=== PATIENT | female | born 1970 | race Caucasian/White ===

== ENCOUNTER 2018-12-02 15:07 | Inpatient (IN) ==
--- NOTE | 2018-12-02 15:45 | Emergency Department Note ---
Disposition Clinical Impression: Hypokalemia, Jaundice Disposition: Admitted As Inpatient Referrals: Lona Pandya CNP [Primary Care Provider] - Time of Disposition: 16:44 General Adult HPI - General Chief complaint: ED Recheck/Abnormal Lab/Rx Stated complaint: K+ low Time Seen by Provider: 12/02/18 15:19 Source: patient Mode of arrival: ambulatory Limitations: no limitations Nursing Notes Reviewed: Yes Vital Signs Reviewed: Yes - History of Present Illness HPI Narrative: 48F with PMHx of HTN presents to emergency department after having an abnormal lab drawn by her primary care physician. Patient states that she had labs drawn today as she has been trying to find out the cause of her jaundice which appeared in April. Her potassium was found to be low at 2.6 today. Patient states she has had low magnesium and low potassium in the past but never a potassium as low as this. She is not on any diuretic medications for her hypertension. She denies vomiting and diarrhea. She has not had any heart palpitations or felt short of breath. She does have some right-sided abdominal pain which she states she has had since April. Pain Scale: 6 - Related Data Home Medications Medication Instructions Recorded Confirmed Lactulose 20 gm PO BID PRN 04/21/18 12/02/18 Metoprolol Succinate [Toprol Xl] 25 mg PO DAILY 04/21/18 12/02/18 Ondansetron HCl [Zofran] 4 mg PO Q6H PRN 04/21/18 12/02/18 Pantoprazole Sodium [Protonix] 40 mg PO DAILY 04/21/18 12/02/18 Allergies Allergy/AdvReac Type Severity Reaction Status Date / Time Penicillins AdvReac Hives Verified 04/20/18 17:52 All systems ED: reviewed and negative except as stated. Review of Systems: As Per HPI Constitutional: Denies: fever, chills, weakness Cardiovascular: Denies: chest pain, palpitations, dyspnea on exertion Respiratory: Denies: cough, dyspnea, wheezes Gastrointestinal: Reports: abdominal pain, nausea. Denies: vomiting, diarrhea Genitourinary: Denies: dysuria, hematuria Musculoskeletal: Denies: back pain, neck pain Neurological: Denies: headache Endocrine: Reports: fatigue Past Medical History - Past Medical History Attestation: Yes The following information was validated with the patient. Source: patient Medical history: Reports: GERD, hypertension Psychiatric history: Reports: no psych history - Social History Smoking Status: Current every day smoker Alcohol use: Reports: occasionally Drug use: Reports: none Physical Exam - General Limitations: no limitations General appearance: alert, in no apparent distress - Head Head exam: atraumatic, normocephalic - Eye Eye exam: Present: PERRL, EOMI, scleral icterus - Chest Chest inspection: Present: normal inspection. Absent: tenderness, rash - Respiratory Respiratory exam: Present: normal lung sounds bilaterally. Absent: wheezes - Cardiovascular Cardiovascular exam: Present: regular rate, normal rhythm - Abdominal Exam Abdominal exam: Present: soft, Non-Tender. Absent: distention, guarding, rebound, rigidity, Solitario's sign, tenderness at McBurney's Point - Extremities Exam Extremities exam: Present: normal inspection. Absent: tenderness, pedal edema - Neurological Exam Neurological exam: Present: alert, oriented X3, CN II-XII intact - Psychiatric Psychiatric exam: Present: normal affect, normal mood - Skin Skin exam: Present: warm, dry, intact Course Vital Signs Temperature 99.8 F H 12/02/18 15:18 Pulse Rate 97 12/02/18 15:18 Respiratory Rate 18 12/02/18 15:18 Blood Pressure 119/76 12/02/18 15:18 O2 Sat by Pulse Oximetry 99 12/02/18 15:18 Temperature 99.8 F H 12/02/18 15:18 Pulse Rate 97 12/02/18 15:18 Respiratory Rate 18 12/02/18 15:18 Blood Pressure 119/76 12/02/18 15:18 O2 Sat by Pulse Oximetry 99 12/02/18 15:18 Oxygen Delivery Oxygen Delivery Room Air Medical Decision Making - [facility] Narrative Medical decision making narrative: Patient presents from outpatient physician's office with low potassium at 2.6. Other labs show an elevated bilirubin of 21. WE will obtain an EKG and start replacing potassium via IV. 1630 - The patient had reportedly been told to stop drinking and adopt healthier eating habits and she states she had tried to improve which caused the jaundice to initially improve, but it has come back over the past few weeks. She also admits to some intermittent melanotic stools her last of which were 2 days ago. The patient will be admitted for further GI workup and see Dr. Dinh in consultation while having her potassium replenished. We spoke with Dr. Dinh and he is requesting some labs including a drug screen, repeat LFTs, a hepatitis panel and states the patient needs an MRCP. Hospitalist has been paged for admission. 1643 - pt has been accepted to the hospital by Dr. Chacon - Medical Records Medical records reviewed: Yes I reviewed the patient's medical records. - Lab Data Lab results reviewed: Yes I reviewed the patient's lab results. Result diagrams: 12/02/18 22:06 Attestation Statement - Attestation Attestation: I, Cyrus Rose, examined this patient and my medical decision-making was reviewed with the QA INTERN/PA/Advanced Practice Nurse/Resident Physician. I agree with the documented findings, disposition and treatment plan as described except to the extent set forth below. I reviewed the EKG with the resident and agree with the interpretation. 48-year-old female presents emergency Department with concerns of hypokalemia. Patient states she was seen by her primary care provider for reevaluation of jaundice. The primary care provider or laboratory testing which returned as hypokalemia. The patient has a history of alcoholic hepatitis and is following with Dr. Dinh. She does report that she has continued to drink alcohol and has not stopped. Patient is jaundiced on exam. She does not have significant pain to the right upper quadrant. Patient's direct bili was significantly elevated. She is anemic more than her previous labs however this could be secondary to either prolonged menstrual period over the past month and a half or a GI bleed. Patient does state that she has had occasional episodes of melena over the past 3 weeks with the last one being 2 days ago. I spoke with the GI physician who is comfortable keeping the patient at [facility]. Patient will be admitted to the hospitalist for further care and evaluation.
[2018-12-02] MEDS ORDERED: Potassium Chloride 40 MEQ, Lidocaine 1% 2 ML in 0.9 % Sodium Chloride 500 ML IVPB ONE (15:56)
[2018-12-02] MEDS ORDERED: diazePAM 10 MG/2 ML SYRINGE IVP PRN (16:54)
[2018-12-02 17:10] LABS: Acetaminophen < 10 mcg/mL (10-20); Ethanol < 10 mg/dL (Less than 10); Salicylate < 2.5 mg/dL (15.0-30.0)
[2018-12-02 17:26] LABS: Albumin 2.9 g/dL (3.5-5.7); Albumin/Globulin Ratio 0.9 (1.1-2.2); Bilirubin,Direct 11.6 mg/dL (0.0-0.2); Bilirubin,Indirect 8.4 mg/dL (0.0-1.2); Globulin 3.2 g/dL (2.4-3.5); Total Protein 6.1 g/dL (6.4-8.9)
[2018-12-02 17:50] LABS: Hepatitis B Surface Antigen Nonreactive (Nonreactive)
[2018-12-02] MEDS ORDERED: Naloxone 0.4 MG/ML INJ IVP PRN (17:59)
[2018-12-02] MEDS ORDERED: Isovue-370 500 ML BOTTLE IVP ONE (18:06)
[2018-12-02 18:18] LABS: Hepatitis B Core IgM Nonreactive (Nonreactive); Hepatitis C Virus Antibody Nonreactive (Nonreactive)
[2018-12-02 18:20] LABS: Hepatitis A Antibody IgM Nonreactive (Nonreactive)
--- NOTE | 2018-12-02 18:41 | Internal Med History&Physical ---
Date of Encounter: 12/02/18 Time of Encounter: 18:28 Internal Medicine - H&P: HPI Chief complaint: abnormal labs Admitted From: Emergency Dept Plans for Post Hospital Care: Home History of present illness: Ms. Kirkpatrick is a 48 year old female with past medical history of hypertension, anxiety, GERD, and alcoholic hepatitis. Surgical history significant for tubal ligation and likely endometrial ablation. Prior to March the patient had very little past medical history. She presented to this hospital earlier this year for painless jaundice. Workup at that time consisted of labs and imaging significant for elevated liver and cholestasis enzymes. Hepatitis screening and imaging at that time was negative for acute abnormality. She was diagnosed with alcoholic hepatitis and discharged in stable condition with a plan for alcohol cessation and nutritional supplementation. She did have resolution of her symptoms including resolution of jaundice and scleral icterus. At discharge she apparently was not prescribed vitamin supplementation as recommended by GI. She also did not comply with alcohol cessation, but did decrease her drinking from approximately 6 drinks per day to 3 drinks per day. Approximately one month ago she began having symptoms of fatigue and malaise. Approximately one month ago she also had the onset of vaginal bleeding whereas she had not bled for 11 months prior, and thought she had reached menopause. It is unclear if the fatigue and malaise are related to vaginal bleeding. Then 2 weeks ago she had resumption of jaundice and scleral icterus. This morning she presented to her primary care physician who ordered general screening labs, and upon results of those labs she was told to present to the emergency department for evaluation. Labs on admission significant for leukocytosis of 15.3, macrocytic anemia with hemoglobin of 10.0, hypokalemia with potassium of 2.6, hyperbilirubinemia, elevated GGT, transaminitis and elevated alkaline phosphatase, and hyperammonemia. Gastroenterology consultation was requested who recommended hepatitis panel and MRCP and they will evaluate the patient in the morning. Patient was transferred to hospitalist service for admission. On my evaluation the patient related and confirmed the above history. She also admits to pack per day smoking history over her lifetime. She relates a family history of her mother having some sort of hepatobiliary cancer, and her daughter having obstetrical/gynecological problems. She reports a personal history of a tubal ligation and a diagnosis after her most recent childbirth in 1990 that required a procedure that sounds like it may have been an endometrial ablation. She states she has not had a gynecological examination or evaluation since 1999. She also reports multiple colonoscopies with polyp removals, up to 14 polyps removed at one point, but that she is up-to-date with colonoscopies. She does also mention melena. She reports being up-to-date with all childhood and adult vaccinations. She denies any illicit drug use. She states that other than fatigue and malaise and mild right upper quadrant pain she denies any acute complaints at this time. During the exam I asked the patient if the rash I noticed was present this morning, and she stated it was not. Past Med Surg Social Fam HX - Past Medical History Medical history: GERD, hypertension Psychiatric history: no psych history - Past Surgical History Additional surgical history: tubal ligation - Social History Smoking Status: Current every day smoker Alcohol use: occasionally Drug use: none - Family History Mother Adopted: No Twin of Family Member: Yes, Fraternal Living Status: Hx Family Cardiac Disorders: Yes (dad, brother aortic valve replacement.) Hx Family Respiratory Disorders: Yes (brother COPD) Hx Family Cancer: Yes (mother gall bladder tumor) Hx Family GI Disorders: No Hx Family Endocrine Disorder: Yes (dad DM) Hx Family Neuromuscular Disorders: No Hx Family Neurologic Disorders: No Hx Family HEENT Disorders: No Hx Family Autoimmune Disorders: No Internal Medicine - H&P: Meds Lactulose 20 gm PO BID PRN 04/21/18 [History] Metoprolol Succinate [Toprol Xl] 25 mg PO DAILY 04/21/18 [History] Ondansetron HCl [Zofran] 4 mg PO Q6H PRN 04/21/18 [History] Pantoprazole Sodium [Protonix] 40 mg PO DAILY 04/21/18 [History] Allergy/AdvReac Type Severity Reaction Status Date / Time Penicillins AdvReac Hives Verified 04/20/18 17:52 All Systems PM: A 10-system review of systems was performed and is negative for pertinent findings except as documented above in the HPI. Review of systems: 10 point review of systems negative except as otherwise mentioned in history of present illness. - Constitutional Vitals: Temp Pulse Resp BP Pulse Ox 98.7 F 101 18 129/78 97 12/02/18 17:36 12/02/18 17:36 12/02/18 17:36 12/02/18 17:36 12/02/18 17:36 Exam: 48-year-old white female appearing stated age resting comfortably in bed Alert and oriented 3, in no acute distress Significant scleral icterus present, pupils equal and reactive to light and extraocular movements intact Heart in regular rate and rhythm without murmur or gallop auscultated Lungs clear auscultation bilaterally without adventitial lung sounds noted Abdomen obese and soft and nontender without distention, normal bowel sounds noted, no peritoneal signs, mild right upper quadrant tenderness, no hepatomegaly noted, no fluid wave or ascites present, no angiectasia noted, 2 small surgical scars present from apparent remote laparoscopic surgery Patient moves all extremities spontaneously, no focal deficits noted Skin warm and dry, no jaundice noted however would be difficult to tell with patient skin tone. No angiectasia, bleeding or bruising noted. There is livedo reticularis present bilaterally across the lumbar region. Internal Med - H&P Results - Labs Labs: Liver Function 12/02/18 Range/Units 16:39 Total Bilirubin 20.0 H (0.3-1.0) mg/dL Direct Bilirubin 11.6 H (0.0-0.2) mg/dL AST 121 H (13-39) Units/L ALT 33 (7-52) Units/L Alkaline Phosphatase 546 H (34-104) Units/L Albumin 2.9 L (3.5-5.7) g/dL - Assessment and Plan (1) Elevated LFTs Current Visit: Yes Status: Acute Assessment and plan: Patient was told to present to emergency department by her PCP due to abnormal labs Significant abnormalities include leukocytosis, microcytic anemia, transaminitis, hyperbilirubinemia, hypokalemia These are the labs that were similarly elevated during her last admission where she was diagnosed with alcoholic hepatitis She did not stop drinking after the previous admission and has had repeated elevations of her labs and painless jaundice However considering the broad-spectrum of lab abnormalities there is a very concerning and broad differential Differential includes alcoholic hepatitis, autoimmune hepatitis, hepatobiliary malignancy, other primary malignancy Gastroenterology is consulted, and has requested hepatitis panel and MRCP, and will evaluate the patient in the morning In anticipation we have ordered SHARA GEORGE, AFP, mitochondrial antibody, smooth muscle antibody, PT/INR At this point the patient is only experiencing mild right upper quadrant pain and malaise, and is hemodynamically stable She will continue to receive supportive care, labs are pending, and gastroenterology will evaluate in the morning (2) Vaginal bleeding Current Visit: Yes Status: Acute Assessment and plan: Patient reports remote history of what sounds like possible endometrial ablation She has not received a gynecological evaluation since 2000 She has been bleeding vaginally for approximately one month, and had not bled for approximately 11 months prior This history is very concerning for gynecological malignancy CT of the abdomen and pelvis with IV contrast is ordered and pending to evaluate (3) Anemia Current Visit: Yes Status: Chronic Assessment and plan: Patient was noted to have mild microcytic anemia, hemoglobin 10.0 on presentation On review of records this is not far from her apparent baseline of 11 This could be secondary to her vaginal bleeding, we will continue to monitor Qualifiers: Anemia type: unspecified type Qualified Code(s): D64.9 - Anemia, unspecified (4) Jaundice Current Visit: Yes Status: Acute (5) Hyperbilirubinemia Current Visit: Yes Status: Acute (6) Alcohol abuse Current Visit: Yes Status: Chronic Assessment and plan: History of chronic alcohol use, CIWA protocol in place (7) Hypokalemia Current Visit: Yes Status: Acute Assessment and plan: Potassium of 2.6 noted on admission, supplementation initiated in the emergency department Repeat potassium check ordered and timed for 8PM, supplementation as necessary (8) Livedo reticularis Current Visit: Yes Status: Acute Assessment and plan: Livedo reticularis noted on the lumbar back on presentation, this appears to be acute Etiology unclear although it can be related to hepatitis We will continue to monitor - Time Spent With Patient Total time spent is greater than 50% in coordination of care (as documented) at patient's floor/unit and/or counseling patient:
--- NOTE | 2018-12-02 18:43 | Event Note ---
Date of Encounter: 12/02/18 Time of Encounter: 18:30 I examined this patient and my medical decision-making was reviewed with the Resident Physician on 12/02/18. I agree with the documented findings, disposition and treatment plan as described except to the extent set forth below. Please see H&P of this date. Ms Kirkpatrick is 48 y/o female with hx of ETOH use presented to ED due to abnormal labs. Ms Kirkpatrick presented with jaundice, icterus and abnormal labs. Denies specific symptoms. Exam Alert. Comfortable Scleral icterus. Not tachycardic No wheeze I/P 1. Probable alcholic hepatitis - INR pending. May need iV steroids. Check liver labs MRCP today CT abd and pelvis due to vaginal bleeding. Further diagnoses and plan as per H&P
[2018-12-02] MEDS ORDERED: *HR* LORazepam 2 MG/ML VIAL IVP PRN (19:13)
[2018-12-02 20:24] LABS: INR 1.3; Prothrombin Time 14.7 Seconds (9.4-12.1)
[2018-12-02 20:27] LABS: Activated Partial Thrombo Time 35.6 Seconds (26.0-36.0)
[2018-12-02] MEDS: Ondansetron ODT 4 MG TAB.RAPDIS SL PRN (21:42)
[2018-12-02] MEDS: MethylPREDNISolone 40 MG/ML VIAL IVP SCH (22:40)
[2018-12-02] MEDS: Melatonin 3 MG TABLET PO PRN (22:41)
[2018-12-03] MEDS ORDERED: traMADol 50 MG TABLET PO ONE ×2 (00:10→20:35)
[2018-12-03 02:39] LABS: Amphetamine Screen,Urine Negative ng/mL (Cutoff=1000); Barbiturate Screen,Urine Negative ng/mL (Cutoff=200); Benzodiazepines Screen,Urine Negative ng/mL (Cutoff=200); Cannabinoid Screen,Urine Negative ng/mL (Cutoff = 50); Cocaine Screen,Urine Negative ng/mL (Cutoff= 300); Opiate Screen,Urine Negative ng/mL (Cutoff=300); Phencyclidine Screen,Urine Negative ng/mL (Cutoff=25)
[2018-12-03 06:30] LABS: Hematocrit 27.2 % (35.3-44.9); Hemoglobin 9.2 g/dL (11.5-15.4); Mean Corpuscular HGB Conc 33.8 g/dL (31.6-35.5); Mean Corpuscular Hemoglobin 36.1 pg (28.0-33.3); Mean Corpuscular Volume 106.7 fL (83.0-100.0); Mean Platelet Volume 10.2 fL (9.4-12.4); Platelet Count 222 K/mcL (140-400); Red Blood Count 2.55 M/mcL (3.82-4.97); White Blood Count 11.8 K/mcL (4.3-11.1)
[2018-12-03 06:48] LABS: BUN/Creatinine Ratio 6 (6-26); Blood Urea Nitrogen 4 mg/dL (6-20); Calcium 8.1 mg/dL (8.6-10.3); Carbon Dioxide 23 mEq/L (23-29); Chloride 102 mEq/L (98-107); Glucose 142 mg/dL (70-105); Osmolality,Calculated 277 (280-300); Sodium 134 mEq/L (136-145); eGFR For African Americans > 60 (> 60); eGFR For Non-African Americans > 60 (> 60)
--- NOTE | 2018-12-03 07:49 | Internal Med Progress Note ---
<MaiaDeonKenton M - Last Filed: 12/03/18 12:12> Hospitalist Progress Note - Encounter Date of Encounter: 12/03/18 Time of Encounter: 07:49 - Subjective Interval History: 48 y/o F with alcoholic hepatitis. Patient is awake, alert, in bed and comfortable. No acute events overnight. Patient endorses some moderate right sided abdominal pain that is unchanged. She reports some mild dysphagia, chills, and sob that began last night. Denies cp, nausea, vomiting. Scleral icterus and jaundice present. - Exam Vitals: Temp Pulse Resp BP Pulse Ox 98.1 F 81 16 100/54 95 12/03/18 03:34 12/03/18 03:34 12/03/18 03:34 12/03/18 03:34 12/03/18 03:34 Exam: GA: Alert and oriented 3, in no acute distress Eyes: scleral icterus present, pupils equal and reactive to light and extraocular movements intact CV: RRR, S1/S2 WNL, no murmurs, rubs, gallops. Lungs: CTAB, no wheezes, rales, rhonchi. GI: Abdomen obese, soft with mild RUQ tenderness to palpation. BS are normoactive. Rashmi fluid wave or ascites present. Ext: No clubing, cyanosis, edema. Skin: warm and dry, mild jaundice. Signficant livedo reticularis present bilaterally across the lumbar region. Neuro: CN grossly intact, no focal deficits. - Assessment and Plan (1) Alcoholic hepatitis Current Visit: Yes Status: Acute Assessment and Plan: Pt previously admitted for alcoholic hepatitis. She did not cessate from alcohol and had repeat elevations of liver enzymes w/painless jaundice. PT 14.7 w/INR of 1.3. AST down from 121 to 100 today. Total bilirubin 19.3. Calcium of 8.1 today, calcium correction for hypoalbunemia is 9.1, no need for supp. Hemodynamically stable. MRCP showed nonspecific periportal edema can be seen with hepatitis, trace ascites right upper quadrant is likely reactive, contracted mildly thick walled gallbladder with pericholecystic fluid is nonspecific, unremarkable appearance of the common bile duct and pancreatic duct, hepatic steatosis and hepatomegaly. GAH 6, MELD-Na 24, DF 32. - Continue Solu-Medrol 32 mg Daily. - Continue to monitor hepatic panel daily per GI. - NPO, plan for EGD today per GI. - Awaiting SHARA GEORGE, AFP, mitochondrial antibody, smooth muscle antibody. - New onset livedo reticularis present on back, will continue to monitor. (2) Hyperammonemia Current Visit: Yes Status: Acute Assessment and Plan: Pt with elevated ammonia level on admission. Pt takes lactulose 20g BID at home. - Start 20 g lactulose daily. - Titrate to 2-4 stools per day. - Repeat ammonia. (3) Hypokalemia Current Visit: Yes Status: Acute Assessment and Plan: Potassium of 2.6 noted on admission. Patient was given 40 meq IV KCl. Repeat potassium now at 3. Patient currently NPO awaiting EGD. - Additional 40 meq IV given prior to endoscopy. - Repeat potassium. Supp as necessary. (4) Vaginal bleeding Current Visit: Yes Status: Acute Assessment and Plan: Patient with new-onset vaginal bleeding x 1 month. Not bled for 11 months prior. Concern for gynecological malignancy. - Abd/pelvis CT revealed expanded endometrial canal with likely blood products. Normal endometrial thickness. Left pelvic 2.2cm cystic structure. No need for ovarian cyst f/u. - It is unlikely malignancy at this point. Will plan for outpatient follow-up with [facility] [employer] SUPER[facility]OR at discharge. - Monitor Hbg, transfuse if necessary. (5) Anemia Current Visit: Yes Status: Chronic Assessment and Plan: Patient was noted to have mild microcytic anemia, hemoglobin 10.0 on presentation. Apparent baseline of 11. Repeat Hbg of 9.2, likely secondary to vaginal bleeding or liver dysfunction. - Continue to monitor. - Monitor CBC, transfuse PRBC as needed per GI. - EGD today. (6) Livedo reticularis Current Visit: Yes Status: Acute Assessment and Plan: Livedo reticularis noted on the lumbar back on presentation, this appears to be acute Etiology unclear although it can be related to hepatitis We will continue to monitor (7) Alcohol abuse Current Visit: Yes Status: Chronic Assessment and Plan: History of chronic alcohol use, [facility] protocol in place. - Abstain from alcohol. - Continue multivitamins. - Time Spent with Patient Total time spent is greater than 50% in coordination of care (as documented) at patient's floor/unit and/or counseling patient: Plan of Care Discussed with: patient Internal Medicine: Result - Labs CBC & Chem 7: 12/03/18 06:01 12/03/18 06:01 Labs: Short CBC 12/03/18 Range/Units 06:01 WBC 11.8 H (4.3-11.1) K/mcL Hgb 9.2 L (11.5-15.4) g/dL Hct 27.2 L (35.3-44.9) % Plt Count 222 (140-400) K/mcL BMP 12/02/18 12/03/18 22:06 06:01 Sodium 134 L Potassium 2.6 L 3.0 L Chloride 102 Carbon Dioxide 23 BUN 4 L Creatinine 0.66 Glucose 142 H Calcium 8.1 L Liver Function 12/02/18 Range/Units 16:39 Total Bilirubin 20.0 H (0.3-1.0) mg/dL Direct Bilirubin 11.6 H (0.0-0.2) mg/dL AST 121 H (13-39) Units/L ALT 33 (7-52) Units/L Alkaline Phosphatase 546 H (34-104) Units/L Albumin 2.9 L (3.5-5.7) g/dL - ABG Interpretation ABG results: PT/INR, D-dimer PT 14.7 Seconds (9.4-12.1) H 12/02/18 19:55 - Impressions Impressions Abdomen MRI 12/02/18 16:27 IMPRESSION: 1. Nonspecific periportal edema can be seen with hepatitis. 2. Trace ascites right upper quadrant is likely reactive. 3. Contracted mildly thick walled gallbladder with pericholecystic fluid is nonspecific. Acalculous cholecystitis is a consideration. Correlate with HIDA scan. 4. Unremarkable appearance of the common bile duct and pancreatic duct. 5. Hepatic steatosis and hepatomegaly. D/ / Jairo Mruphy / Jairo Murphy Interpreting Provider: Jairo Murphy Abdomen/Pelvis CT 12/02/18 18:06 IMPRESSION: The liver is enlarged and shows diffuse moderate fatty infiltration. High density contents within the endometrial canal, likely blood products given history. Distal colonic diverticulosis without evidence of active inflammation. D/ / Maggie Garza Cha, MD / Maggie Garza Cha, MD Interpreting Provider: Maggie Garza Cha, MD Consult Discharge Plan - Plan Referrals: Lona Pandya CNP [Primary Care Provider] - <Pablo Phelps - Last Filed: 12/03/18 18:31> Hospitalist Progress Note - Encounter Date of Encounter: 12/03/18 - Exam Vitals: Temp Pulse Resp BP Pulse Ox 98.0 F 71 18 121/64 95 12/03/18 17:15 12/03/18 17:15 12/03/18 17:15 12/03/18 17:15 12/03/18 17:15 - Assessment and Plan (1) Hypokalemia Current Visit: Yes Status: Acute (2) Livedo reticularis Current Visit: Yes Status: Acute (3) Alcohol abuse Current Visit: Yes Status: Chronic (4) Alcoholic hepatitis Current Visit: Yes Status: Acute - Time Spent with Patient Total time spent is greater than 50% in coordination of care (as documented) at patient's floor/unit and/or counseling patient: Internal Medicine: Result - Labs CBC & Chem 7: 12/03/18 06:01 12/03/18 06:01 Labs: Short CBC 12/03/18 Range/Units 06:01 WBC 11.8 H (4.3-11.1) K/mcL Hgb 9.2 L (11.5-15.4) g/dL Hct 27.2 L (35.3-44.9) % Plt Count 222 (140-400) K/mcL BMP 12/02/18 12/03/18 22:06 06:01 Sodium 134 L Potassium 2.6 L 3.0 L Chloride 102 Carbon Dioxide 23 BUN 4 L Creatinine 0.66 Glucose 142 H Calcium 8.1 L Liver Function 12/03/18 Range/Units 06:01 Total Bilirubin 19.3 H (0.3-1.0) mg/dL Direct Bilirubin 11.1 H (0.0-0.2) mg/dL AST 100 H (13-39) Units/L ALT 30 (7-52) Units/L Alkaline Phosphatase 494 H (34-104) Units/L Albumin 2.7 L (3.5-5.7) g/dL - ABG Interpretation ABG results: PT/INR, D-dimer PT 14.7 Seconds (9.4-12.1) H 12/02/18 19:55 - Impressions Impressions Abdomen MRI 12/02/18 16:27 IMPRESSION: 1. Nonspecific periportal edema can be seen with hepatitis. 2. Trace ascites right upper quadrant is likely reactive. 3. Contracted mildly thick walled gallbladder with pericholecystic fluid is nonspecific. Acalculous cholecystitis is a consideration. Correlate with HIDA scan. 4. Unremarkable appearance of the common bile duct and pancreatic duct. 5. Hepatic steatosis and hepatomegaly. D/ / Jairo Murphy / Jairo Murphy Interpreting Provider: Jairo Murphy Abdomen/Pelvis CT 12/02/18 18:06 IMPRESSION: The liver is enlarged and shows diffuse moderate fatty infiltration. High density contents within the endometrial canal, likely blood products given history. Distal colonic diverticulosis without evidence of active inflammation. D/ / Maggie Garza Cha, MD / Maggie Garza Cha, MD Interpreting Provider: Maggie Garza Cha, MD - Attending Attestation I examined this patient and my medical decision-making was reviewed with the Resident Physician on 12/03/18. I agree with the documented findings, disposition and treatment plan as described except to the extent set forth below. Ms Kirkpatrick is currently hospitalized for acute alcoholic hepatitis. She remains moderate to high risk due to potential for worsening clinical status. Ms Kirkpatrick is doing OK. No fever or chills. Still with some discomfort in RUQ area. No CP or SOB. Exam Alert Comfortable Icterus. Jaundice. Not tachy. No wheeze. Tender on liver edge. Plan: Steroids and supportive care for now. <Kenton Carvalho - Last Filed: 12/03/18 12:12> (1) Alcoholic hepatitis Qualifiers: Ascites presence: without ascites Qualified Code(s): K70.10 - Alcoholic hepatitis without ascites (5) Anemia Qualifiers: Anemia type: unspecified type Qualified Code(s): D64.9 - Anemia, unspecified <Pablo Phelps - Last Filed: 12/03/18 18:31> (4) Alcoholic hepatitis Qualifiers: Ascites presence: without ascites Qualified Code(s): K70.10 - Alcoholic hepatitis without ascites
[2018-12-03] MEDS: MethylPREDNISolone 40 MG/ML VIAL IVP SCH (08:07)
[2018-12-03] MEDS: Folic Acid 1 MG TABLET PO SCH (08:07)
[2018-12-03] MEDS: Thiamine (B-1) 100 MG TABLET PO SCH (08:07)
[2018-12-03] MEDS: Vitamin B Complex/Vit C/Vit E 1 EACH TABLET PO SCH (08:07)
[2018-12-03] MEDS: Metoprolol XL (24 HR) Succ 25 MG TAB.ER.24H PO SCH (08:07)
[2018-12-03 09:53] LABS: Alanine Aminotransferase 30 Units/L (7-52); Albumin 2.7 g/dL (3.5-5.7); Albumin/Globulin Ratio 0.9 (1.1-2.2); Alkaline Phosphatase 494 Units/L (34-104); Aspartate Amino Transferase 100 Units/L (13-39); Bilirubin,Direct 11.1 mg/dL (0.0-0.2); Bilirubin,Indirect 8.2 mg/dL (0.0-1.2); Bilirubin,Total 19.3 mg/dL (0.3-1.0); Globulin 3.1 g/dL (2.4-3.5); Total Protein 5.8 g/dL (6.4-8.9)
[2018-12-03] MEDS: Ondansetron ODT 4 MG TAB.RAPDIS SL PRN ×2 (10:22→20:46)
--- NOTE | 2018-12-03 11:38 | Gastroenterology Consult Note ---
<SharifDon Emilia - Last Filed: 12/03/18 11:32> Date of Encounter: 12/03/18 Time of Encounter: 10:15 - Assessment and plan (1) Alcoholic hepatitis Status: Acute Assessment and plan: On arrival to ED, WBC 15.3, Hgb 10, TB 21.5, AST 136, ALT 37, AP 580. Recheck with TB 20, DB 11.6, AST 121, ALT 33, AP 546, hepatitis profile negative, INR 1.3. Today TB 19.3, DB 11.1, AST 100, ALT 30, AP 494. MRCP showed nonspecific periportal edema can be seen with hepatitis, trace ascites right upper quadrant is likely reactive, contracted mildly thick walled gallbladder with pericholecystic fluid is nonspecific, unremarkable appearance of the common bile duct and pancreatic duct, hepatic steatosis and hepatomegaly. GAH 6, MELD-Na 24, DF 32. Patient started on Solu-Medrol 32 mg daily. Continue to monitor hepatic panel daily. Recommended abstaining from alcohol and adding multivitamins to diet (including thiamine). Qualifiers: Ascites presence: without ascites Qualified Code(s): K70.10 - Alcoholic hepatitis without ascites (2) Anemia Status: Chronic Assessment and plan: Hgb on admission 10 and today 9.2. Hgb 11.5 on 04/29/18. Continue to monitor CBC and transfuse PRBC as needed Plan for EGD today to r/o esophagitis, gastritis, duodenitis, PUD, MW tear, or AVM. Keep NPO for scope. Qualifiers: Anemia type: unspecified type Qualified Code(s): D64.9 - Anemia, unspecified (3) Melena Status: Acute Assessment and plan: Patient with complains of black tarry stools. Plan for EGD today to r/o esophagitis, gastritis, duodenitis, PUD, MW tear, or AVM. Keep NPO for scope. - Time Spent With Patient Total time spent is greater than 50% in coordination of care (as documented) at patient's floor/unit and/or counseling patient: GI History of Present Illness - Data of Consult Patient: known to practice within the last 3 years Consult date: 12/03/18 Requesting Physician: Pablo Phelps DO - Consult Narrative Reason for consult: Jaundice History of present illness: Ms. Kirkpatrick is a 48 year old female with PMHx of HTN, anxiety, GERD, and alcoholic hepatitis. She presented to this hospital earlier this year for painless jaundice and was diagnosed with alcoholic hepatitis. At discharge she apparently was not prescribed vitamin supplementation as recommended by GI. She also did not comply with alcohol cessation, but did decrease her drinking from approximately 6 drinks per day to 3 drinks per day. Two weeks ago she had resumption of jaundice and scleral icterus. Her PCP completed lab and upon those results the patient was instructed to present to the ED for further evaluation. On arrival to ED, WBC 15.3, Hgb 10, TB 21.5, AST 136, ALT 37, AP 580. Recheck with TB 20, DB 11.6, AST 121, ALT 33, AP 546, hepatitis profile negative, INR 1.3. We were consulted to evaluate her alcoholic hepatitis. Patient reports black tarry stools recently. Hgb on admission 10 and today 9.2. Hgb 11.5 on 04/29/18. Procedures: Colonoscopy 12/20/2010 Dr. Monson: 3 small hyperplastic polyps with recommended repeat in 5 years. EGD 08/11/2008 Dr. Monson: Minimal gastritis. Colonoscopy 10/21/2006 Dr. Monson: Juvenile polyp. Colonoscopy 10/20/2006 Dr. Monson: 4 hyperplastic polyps. NSAIDs: None Anticoagulation: None Past Med Surg Social Fam HX - Past Medical History Medical history: GERD, hypertension Psychiatric history: no psych history - Past Surgical History Additional surgical history: tubal ligation - Social History Smoking Status: Current every day smoker Alcohol use: occasionally Drug use: none - Family History Mother Adopted: No Twin of Family Member: Yes, Fraternal Living Status: Hx Family Cardiac Disorders: Yes (dad, brother aortic valve replacement.) Hx Family Respiratory Disorders: Yes (brother COPD) Hx Family Cancer: Yes (mother gall bladder tumor) Hx Family GI Disorders: No Hx Family Endocrine Disorder: Yes (dad DM) Hx Family Neuromuscular Disorders: No Hx Family Neurologic Disorders: No Hx Family HEENT Disorders: No Hx Family Autoimmune Disorders: No - Gastrointestinal Gastrointestinal: Present: as per HPI - Constitutional Constitutional: as per HPI - EENT Eyes: as per HPI Ears: Present: as per HPI Nose, mouth and throat: Present: as per HPI - Cardiovascular Cardiovascular ROS: Present: as per HPI - Respiratory Respiratory IM: Present: as per HPI - Genitourinary Genitourinary: Absent: change in color, Urinary frequency - Neurological ROS Neurological GI: Present: as per HPI - Hematologic/Lymphatic Hematologic/Lymphatic pediatric: Present: as per HPI - Musculoskeletal Musculoskeletal ROS GI: Present: as per HPI - Integumentary Integumentary GI: Present: as per HPI - Psychiatric ROS Psychiatric GI: Present: as per HPI - Endocrine Endocrine IM: Present: as per HPI - Constitutional Vitals: Temp Pulse Resp BP Pulse Ox 97.6 F 67 18 112/66 96 12/03/18 08:12 12/03/18 08:12 12/03/18 08:12 12/03/18 08:12 12/03/18 08:12 General appearance: Present: cooperative, A&O X 3, no acute distress, answers questions appropriately - Head Head exam: Present: atraumatic, normocephalic - Eye Eye exam: Present: scleral icterus - ENT ENT exam: Present: mucous membranes moist - Neck Neck exam general surgery: Present: normal inspection, trachea midline - Respiratory Respiratory exam: Present: CTAB. Absent: rales, rhonchi - Cardiovascular Cardiovascular exam: Present: RRR, +S1, +S2 - GI/Abdominal GI/Abdominal exam: Present: soft, tenderness (mild RUQ tenderness), no peritoneal signs. Absent: distended, firm, guarding - Rectal Rectal exam: Present: deferred - Extremities Exam Extremities exam: Present: warm - Neurological Exam Neurological exam: Present: no focal deficits - Psychiatric Psychiatric exam: Present: normal affect, normal mood - Skin Skin exam: Present: dry, intact, warm. Absent: normal color (Jaundice) Results - Labs CBC & Chem 7: 12/03/18 06:01 12/03/18 06:01 Labs: Last Result 12/03/18 12/03/18 02:10 06:01 Calcium 8.1 L Urine Opiates Screen Negative Entire Visit 12/03/18 12/03/18 06:01 06:01 Hgb 9.2 L Hct 27.2 L Total Bilirubin 19.3 H AST 100 H ALT 30 - ABG ABG results: PT/INR, D-dimer PT 14.7 Seconds (9.4-12.1) H 12/02/18 19:55 - Impressions Impressions Abdomen MRI 12/02/18 16:27 IMPRESSION: 1. Nonspecific periportal edema can be seen with hepatitis. 2. Trace ascites right upper quadrant is likely reactive. 3. Contracted mildly thick walled gallbladder with pericholecystic fluid is nonspecific. Acalculous cholecystitis is a consideration. Correlate with HIDA scan. 4. Unremarkable appearance of the common bile duct and pancreatic duct. 5. Hepatic steatosis and hepatomegaly. D/ / Jairo Murphy / Jairo Murphy Interpreting Provider: Jairo Murphy Abdomen/Pelvis CT 12/02/18 18:06 IMPRESSION: The liver is enlarged and shows diffuse moderate fatty infiltration. High density contents within the endometrial canal, likely blood products given history. Distal colonic diverticulosis without evidence of active inflammation. D/ / Maggie Garza Cha, MD / Maggie Garza Cha, MD Interpreting Provider: Maggie Garza Cha, MD Consult Discharge Plan - Plan Additional Instructions: You have been prescribed a steroid taper named prednisolone, it is vital that you take this as prescribed. You have also been prescribed a medication named acamprosate to help with alcohol cravings, it is also important that you take this medication as prescribed. You have also been prescribed 10 mg of Compazine which can be taken with OTC Benadryl or Ibuprofen for headaches. Please follow-up with your primary care provider within the next 3-5 days to discuss continued abstinence from alcohol. Please follow-up with your BUSINESS UNIT MANAGER or PCP provider for management of intermittent vaginal bleeding. It is also important that you follow-up with Dr. Hinds in gastroenterology within the next 1-2 weeks. It is crucial that you avoid alcohol at this time. Please follow-up with your PCP for additional resources. If you develop worsening abdominal pain, jaundice, or develop chest pain, shortness of breath, nausea, vomiting please go to your nearest emergency department. Referrals: Alfredo Hinds MD [Partnered Physician] - (Web request - office will call you) Lona Pandya CNP [Primary Care Provider] - 12/11/18 10:30 am Prescriptions: Acamprosate Calcium 666 mg PO TID 30 Days #90 tablet.dr Transmission Status: Received by [facility] Prochlorperazine Maleate [Compazine] 10 mg PO Q6HR 5 Days #20 tablet Transmission Status: Received by [facility] Folic Acid 1 mg PO DAILY 30 Days #30 tablet Transmission Status: Received by [facility] PrednisoLONE [Millipred] 5 mg PO TAPER 21 Days #98 tablet Transmission Status: Received by [facility] Vitamin B Complex/Vit C/Vit E [Stresstab] 1 each PO DAILY 30 Days #30 tablet Transmission Status: Received by [facility] Thiamine (B-1) [Vitamin B-1] 100 mg PO DAILY 30 Days #30 tablet Transmission Status: Received by [facility] <Alfredo Hinds - Last Filed: 12/24/18 05:01> Date of Encounter: 12/03/18 - Time Spent With Patient Total time spent is greater than 50% in coordination of care (as documented) at patient's floor/unit and/or counseling patient: GI History of Present Illness - Data of Consult Requesting Physician: Pablo Phelps DO - Consult Narrative History of present illness: Ms. Kirkpatrick is a 48 year old female - Constitutional Vitals: Temp Pulse Resp BP Pulse Ox 98.5 F 79 16 115/74 99 12/08/18 10:51 12/08/18 10:51 12/08/18 10:51 12/08/18 10:51 12/08/18 10:51 Results - Labs CBC & Chem 7: 12/08/18 04:39 12/08/18 04:39 - ABG ABG results: PT/INR, D-dimer PT 14.7 Seconds (9.4-12.1) H 12/02/18 19:55 - Attending Attestation Patient presents with clinical features consistent with acute alcoholic hepatitis. Incidental dark stools reported a few days ago. None in the past 24 hours. Patient presents with high risk for any endoscopic procedure and with no overt active bleeding presently would hold off any endoscopy for now. Reassess again in a few days as patient hopefully recovers gradually. Very deep jaundice. Discussed [facility] patient. I have personally performed a face to face evaluation on this patient. I have reviewed and agree with the care plan. History and Exam by me shows:
[2018-12-03] MEDS ORDERED: Ketorolac 15 MG/ML VIAL IVP ONE (12:47)
[2018-12-03] MEDS: Lactulose Oral Soln 20 GM/30 ML UDC PO SCH (15:22)
[2018-12-03] MEDS: Melatonin 3 MG TABLET PO PRN (20:46)
[2018-12-04 04:03] LABS: Basophils % 0.1 %; Eosinophils % 0.1 %; Hematocrit 25.7 % (35.3-44.9); Hemoglobin 8.6 g/dL (11.5-15.4); Immature Granulocytes % 1.3 % (0-4); Lymphocytes # 1.8 K/mcL (0.6-4.6); Mean Corpuscular HGB Conc 33.5 g/dL (31.6-35.5); Mean Corpuscular Hemoglobin 36.4 pg (28.0-33.3); Mean Corpuscular Volume 108.9 fL (83.0-100.0); Mean Platelet Volume 10.1 fL (9.4-12.4); Monocytes # 1.1 K/mcL (0.0-1.3); Monocytes % 7.6 %; Neutrophils # 11.5 K/mcL (1.6-8.9); Platelet Count 249 K/mcL (140-400); Red Blood Count 2.36 M/mcL (3.82-4.97); Red Cell Distribution Width 23.2 % (11.5-14.5); Segmented Neutrophils % 78.9 %; White Blood Count 14.6 K/mcL (4.3-11.1)
[2018-12-04 04:17] LABS: BUN/Creatinine Ratio 11 (6-26); Blood Urea Nitrogen 8 mg/dL (6-20); Calcium 7.8 mg/dL (8.6-10.3); Carbon Dioxide 21 mEq/L (23-29); Chloride 105 mEq/L (98-107); Glucose 108 mg/dL (70-105); Osmolality,Calculated 275 (280-300); Potassium 3.1 mEq/L (3.5-5.1); Sodium 133 mEq/L (136-145); eGFR For African Americans > 60 (> 60); eGFR For Non-African Americans > 60 (> 60)
[2018-12-04 04:27] LABS: Stomatocytes 2+ (Not Present); Target Cells 2+ (Not Present)
[2018-12-04 04:28] LABS: Platelet Estimate Normal (Normal); Poikilocytosis 2+ (Not Present)
[2018-12-04] MEDS: Ondansetron ODT 4 MG TAB.RAPDIS SL PRN (08:12)
[2018-12-04] MEDS: Vitamin B Complex/Vit C/Vit E 1 EACH TABLET PO SCH (09:17)
[2018-12-04] MEDS: Lactulose Oral Soln 20 GM/30 ML UDC PO SCH (09:17)
[2018-12-04] MEDS: Folic Acid 1 MG TABLET PO SCH (09:17)
[2018-12-04] MEDS: Metoprolol XL (24 HR) Succ 25 MG TAB.ER.24H PO SCH (09:18)
[2018-12-04] MEDS: Thiamine (B-1) 100 MG TABLET PO SCH (09:18)
[2018-12-04] MEDS: *HR* LORazepam 2 MG/ML VIAL IVP PRN ×3 (09:40→20:40)
[2018-12-04] MEDS: MethylPREDNISolone 40 MG/ML VIAL IVP SCH (09:40)
[2018-12-04 15:22] LABS: AFP Tumor Marker Non-Pregnant 4 ng/mL (0-9)
--- NOTE | 2018-12-04 15:42 | Internal Med Progress Note ---
Hospitalist Progress Note - Encounter Date of Encounter: 12/04/18 Time of Encounter: 10:15 - Subjective Interval History: Ms Kirkpatrick is currently admitted for acute alcoholic hepatitis and alcohol withdrawal. She remains moderate to high risk due to potential for worsening clinical status. Ms Kirkpatrick said she had some issues this morning and took Ativan - CIWA was 7. Feels OK now. Back is itching more. No CP or SOB. No nausea. Still with some RUQ discomfort. - Exam Vitals: Temp Pulse Resp BP Pulse Ox 98.1 F 83 18 122/75 98 12/04/18 15:14 12/04/18 15:14 12/04/18 15:14 12/04/18 15:14 12/04/18 15:14 Exam: General: Alert and oriented. Comfortable at this time. Skin: Jaundiced. Livedo continues on back. H: Normocephalic. EENT: EOMI, pupils equal. Scleral icterus present. Mucus membranes moist. Cardiovascular: Normal S1 & S2, no murmurs Pulse regular. Lungs: Normal breath sounds, no wheezes or crackles. Abdomen: Soft,no rigidity. Normal bowel sounds. Mild discomfort on R Extremities: No deformity, no edema or tenderness, Neurological: Normal cognition and motor skills. No asterixis Pulses: radial pulses normal +2. Rest of the physical exam is non contributory - Assessment and Plan (1) Hypokalemia Current Visit: Yes Status: Acute Assessment and Plan: Persists today. Replace oral and recheck tomorrow. (2) Livedo reticularis Current Visit: Yes Status: Acute Assessment and Plan: Persists. Due to alcoholic hepatitis. Recheck in AM. (3) Alcohol abuse Current Visit: Yes Status: Chronic Assessment and Plan: Pt is beginning to show signs of withdrawal. Continue CIWA. At this time keeping in hospital for management. (4) Alcoholic hepatitis Current Visit: Yes Status: Acute Assessment and Plan: Currently on steroids. No acute new issues. Continue Lactulose. (5) Hypertension Current Visit: No Status: Chronic Assessment and Plan: Controlled at this time. - Time Spent with Patient Total time spent is greater than 50% in coordination of care (as documented) at patient's floor/unit and/or counseling patient: Internal Medicine: Result - Labs CBC & Chem 7: 12/04/18 03:26 12/04/18 03:26 Labs: Short CBC 12/04/18 Range/Units 03:26 WBC 14.6 H (4.3-11.1) K/mcL Hgb 8.6 L (11.5-15.4) g/dL Hct 25.7 L (35.3-44.9) % Plt Count 249 (140-400) K/mcL Neutrophils # 11.5 H (1.6-8.9) K/mcL BMP 12/04/18 03:26 Sodium 133 L Potassium 3.1 L Chloride 105 Carbon Dioxide 21 L BUN 8 Creatinine 0.71 Glucose 108 H Calcium 7.8 L - ABG Interpretation ABG results: PT/INR, D-dimer PT 14.7 Seconds (9.4-12.1) H 12/02/18 19:55 Consult Discharge Plan - Plan Referrals: Lona Pandya, [employer] OPERATOR [Primary Care Provider] - (4) Alcoholic hepatitis Qualifiers: Ascites presence: without ascites Qualified Code(s): K70.10 - Alcoholic hepatitis without ascites (5) Hypertension Qualifiers: Hypertension type: essential hypertension Qualified Code(s): I10 - Essential (primary) hypertension
[2018-12-05 08:20] LABS: Hematocrit 29.3 % (35.3-44.9); Hemoglobin 9.8 g/dL (11.5-15.4); Mean Corpuscular HGB Conc 33.4 g/dL (31.6-35.5); Mean Corpuscular Hemoglobin 36.3 pg (28.0-33.3); Mean Corpuscular Volume 108.5 fL (83.0-100.0); Mean Platelet Volume 9.7 fL (9.4-12.4); Platelet Count 301 K/mcL (140-400); Red Cell Distribution Width 22.6 % (11.5-14.5); White Blood Count 14.8 K/mcL (4.3-11.1)
[2018-12-05 08:39] LABS: BUN/Creatinine Ratio 12 (6-26); Blood Urea Nitrogen 8 mg/dL (6-20); Calcium 8.4 mg/dL (8.6-10.3); Carbon Dioxide 22 mEq/L (23-29); Chloride 104 mEq/L (98-107); Glucose 94 mg/dL (70-105); Osmolality,Calculated 276 (280-300); Potassium 3.4 mEq/L (3.5-5.1); Sodium 134 mEq/L (136-145); eGFR For African Americans > 60 (> 60); eGFR For Non-African Americans > 60 (> 60)
[2018-12-05 08:54] LABS: Albumin 2.8 g/dL (3.5-5.7); Albumin/Globulin Ratio 0.9 (1.1-2.2); Bilirubin,Direct 11.1 mg/dL (0.0-0.2); Bilirubin,Total 19.1 mg/dL (0.3-1.0); Total Protein 5.8 g/dL (6.4-8.9)
[2018-12-05] MEDS: Ondansetron ODT 4 MG TAB.RAPDIS SL PRN ×2 (09:15→16:58)
[2018-12-05] MEDS: Thiamine (B-1) 100 MG TABLET PO SCH (09:15)
[2018-12-05] MEDS: Folic Acid 1 MG TABLET PO SCH (09:15)
[2018-12-05] MEDS: Metoprolol XL (24 HR) Succ 25 MG TAB.ER.24H PO SCH (09:15)
[2018-12-05] MEDS: Vitamin B Complex/Vit C/Vit E 1 EACH TABLET PO SCH (09:15)
[2018-12-05] MEDS: Lactulose Oral Soln 20 GM/30 ML UDC PO SCH (09:15)
[2018-12-05] MEDS: PrednisoLONE Oral Soln 15 MG/5 ML UDC PO SCH (09:16)
[2018-12-05] MEDS: *HR* LORazepam 2 MG/ML VIAL IVP PRN ×3 (09:45→20:53)
[2018-12-05 10:27] LABS: Smooth Muscle Ab Titer IgG <1:20 (<1:20)
[2018-12-05 10:37] LABS: ANA IgG by ELISA DETECTED (None Detected)
--- NOTE | 2018-12-05 11:50 | Internal Med Progress Note ---
Hospitalist Progress Note - Encounter Date of Encounter: 12/05/18 Time of Encounter: 11:46 - Subjective Interval History: Ms Kirkpatrick is currently admitted for acute alcoholic hepatitis and ETOH withdrawal. She remains moderate to high risk due to potential for worsening clinical status. Ms Kirkpatrick feels about the same. She is still fatigued and has some itching. No fever or chills. No CP or SOB. Tolerating PO steroid. Has gotten some Ativan over last 24 hours. No tremor. No confusion. More hungry now. Still has had some nausea. - Exam Vitals: Temp Pulse Resp BP Pulse Ox 98.3 F 97 16 116/78 99 12/05/18 11:04 12/05/18 11:04 12/05/18 11:04 12/05/18 11:04 12/05/18 11:04 Exam: General: Alert and oriented. Comfortable at this time. Pleasant and inte ractive. Skin: Jaundiced. Livedo continues on back but seems inspector metal can. H: Normocephalic. EENT: EOMI, Scleral icterus present. Mucus membranes moist. Cardiovascular: Normal S1 & S2, no murmurs Pulse regular. Not tachycardic Lungs: Normal breath sounds, no wheezes or crackles. Abdomen: Soft,no rigidity. Normal bowel sounds. Less discomfort on R Extremities: No deformity, no edema or tenderness, Neurological: Normal cognition and motor skills. No asterixis Pulses: radial pulses normal +2. Rest of the physical exam is non contributory - Assessment and Plan (1) Hypokalemia Current Visit: Yes Status: Acute Assessment and Plan: Persists today. Replace more today. Check magnesium. 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 (3) Alcohol abuse Current Visit: Yes Status: Chronic Assessment and Plan: Has received a couple doses of Ativan. Will continue to monitor overnight here. Possible d/c tomorrow. (4) Alcoholic hepatitis Current Visit: Yes Status: Acute Assessment and Plan: Currently on steroids. No acute new issues. Continue Lactulose. (5) Hypertension Current Visit: No Status: Chronic Assessment and Plan: Controlled at this time. - Time Spent with Patient Total time spent is greater than 50% in coordination of care (as documented) at patient's floor/unit and/or counseling patient: Internal Medicine: Result - Labs CBC & Chem 7: 12/05/18 08:06 12/05/18 08:06 Labs: Short CBC 12/05/18 Range/Units 08:06 WBC 14.8 H (4.3-11.1) K/mcL Hgb 9.8 L (11.5-15.4) g/dL Hct 29.3 L (35.3-44.9) % Plt Count 301 (140-400) K/mcL BMP 12/05/18 08:06 Sodium 134 L Potassium 3.4 L Chloride 104 Carbon Dioxide 22 L BUN 8 Creatinine 0.65 Glucose 94 Calcium 8.4 L Liver Function 12/05/18 Range/Units 08:06 Total Bilirubin 19.1 H (0.3-1.0) mg/dL Direct Bilirubin 11.1 H (0.0-0.2) mg/dL AST 131 H (13-39) Units/L ALT 42 (7-52) Units/L Alkaline Phosphatase 465 H (34-104) Units/L Albumin 2.8 L (3.5-5.7) g/dL - ABG Interpretation ABG results: PT/INR, D-dimer PT 14.7 Seconds (9.4-12.1) H 12/02/18 19:55 Consult Discharge Plan - Plan Referrals: Lona Pandya, RESPIRATORY CARE INSTRUCTOR [Primary Care Provider] - (4) Alcoholic hepatitis Qualifiers: Ascites presence: without ascites Qualified Code(s): K70.10 - Alcoholic hepatitis without ascites (5) Hypertension Qualifiers: Hypertension type: essential hypertension Qualified Code(s): I10 - Essential (primary) hypertension
[2018-12-05] MEDS ORDERED: Promethazine 12.5 MG in 0.9 % Sodium Chloride 50 ML IVPB PRN (12:16)
[2018-12-05] MEDS ORDERED: Ketorolac 15 MG/ML VIAL IVP ONE (17:07)
[2018-12-06] MEDS: *HR* LORazepam 2 MG/ML VIAL IVP PRN ×3 (04:07→15:58)
[2018-12-06 05:20] LABS: Hematocrit 28.1 % (35.3-44.9); Hemoglobin 9.2 g/dL (11.5-15.4); Mean Corpuscular HGB Conc 32.7 g/dL (31.6-35.5); Mean Corpuscular Hemoglobin 35.8 pg (28.0-33.3); Mean Corpuscular Volume 109.3 fL (83.0-100.0); Mean Platelet Volume 9.6 fL (9.4-12.4); Platelet Count 279 K/mcL (140-400); Red Blood Count 2.57 M/mcL (3.82-4.97); Red Cell Distribution Width 22.4 % (11.5-14.5); White Blood Count 12.5 K/mcL (4.3-11.1)
[2018-12-06 05:41] LABS: Alanine Aminotransferase 50 Units/L (7-52); Albumin 2.7 g/dL (3.5-5.7); Alkaline Phosphatase 432 Units/L (34-104); Aspartate Amino Transferase 141 Units/L (13-39); BUN/Creatinine Ratio 12 (6-26); Bilirubin,Total 16.6 mg/dL (0.3-1.0); Blood Urea Nitrogen 8 mg/dL (6-20); Carbon Dioxide 21 mEq/L (23-29); Chloride 106 mEq/L (98-107); Globulin 2.8 g/dL (2.4-3.5); Glucose 83 mg/dL (70-105); Osmolality,Calculated 277 (280-300); Potassium 3.2 mEq/L (3.5-5.1); Sodium 135 mEq/L (136-145); Total Protein 5.5 g/dL (6.4-8.9); eGFR For African Americans > 60 (> 60); eGFR For Non-African Americans > 60 (> 60)
[2018-12-06] MEDS: PrednisoLONE Oral Soln 15 MG/5 ML UDC PO SCH (08:45)
[2018-12-06] MEDS: Thiamine (B-1) 100 MG TABLET PO SCH (08:47)
[2018-12-06] MEDS: Lactulose Oral Soln 20 GM/30 ML UDC PO SCH (08:47)
[2018-12-06] MEDS: Metoprolol XL (24 HR) Succ 25 MG TAB.ER.24H PO SCH (08:47)
[2018-12-06] MEDS: Vitamin B Complex/Vit C/Vit E 1 EACH TABLET PO SCH (08:47)
[2018-12-06] MEDS: Folic Acid 1 MG TABLET PO SCH (08:48)
--- NOTE | 2018-12-06 10:45 | Internal Med Progress Note ---
Hospitalist Progress Note - Encounter Date of Encounter: 12/06/18 Time of Encounter: 10:43 - Subjective Interval History: Ms Kirkpatrick is currently admitted for acute alcoholic hepatitis and alcohol withdrawal. She remains moderate to high risk due to potential for worsening clinical status. Ms Kirkpatrick has used more Ativan in the last 24 hours. She has had a headache on R side and frontal area. No other neuro symptoms. No CP or SOB. Lots of nausea yesterday after eating. Pain about the same. - Exam Vitals: Temp Pulse Resp BP Pulse Ox 98.4 F 66 15 126/82 100 12/06/18 06:39 12/06/18 06:39 12/06/18 06:39 12/06/18 06:39 12/06/18 06:39 Exam: General: Alert and oriented. Comfortable at this time. Skin: Jaundiced. Seems to be a little better today. H: Normocephalic. EENT: EOMI, Scleral icterus present and unchanged. Mucus membranes moist. Cardiovascular: Normal S1 & S2, no murmurs Pulse regular. Lungs: Normal breath sounds. No wheeze noted. Abdomen: Soft,no rigidity. Normal bowel sounds. Continued discomfort on R side liver edge. Extremities: No deformity, no edema or tenderness, Neurological: Normal cognition and motor skills. No asterixis No weakness or other focal neuro deficit Pulses: radial pulses normal +2. Rest of the physical exam is non contributory - Assessment and Plan (1) Hypokalemia Current Visit: Yes Status: Acute Assessment and Plan: Continues today. Will give additional doses of K today. Magnesium is good. 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 (3) Alcohol abuse Current Visit: Yes Status: Chronic Assessment and Plan: Has received higher doses of Ativan today. Continue to follow. (4) Alcoholic hepatitis Current Visit: Yes Status: Acute Assessment and Plan: Currently on steroids. No acute new issues. Continue Lactulose. Bilirubin decreasing now. (5) Hypertension Current Visit: No Status: Chronic Assessment and Plan: Controlled at this time. (6) Cephalgia Current Visit: Yes Status: Acute Assessment and Plan: Pt has had frontal and R side headache over last 24 hours. Will check noncontrast CT though has no focal neuro deficits. PRN pain control. - Time Spent with Patient Total time spent is greater than 50% in coordination of care (as documented) at patient's floor/unit and/or counseling patient: Internal Medicine: Result - Labs CBC & Chem 7: 12/06/18 04:23 12/06/18 04:23 Labs: Short CBC 12/06/18 Range/Units 04:23 WBC 12.5 H (4.3-11.1) K/mcL Hgb 9.2 L (11.5-15.4) g/dL Hct 28.1 L (35.3-44.9) % Plt Count 279 (140-400) K/mcL BMP 12/06/18 04:23 Sodium 135 L Potassium 3.2 L Chloride 106 Carbon Dioxide 21 L BUN 8 Creatinine 0.68 Glucose 83 Calcium 8.0 L Liver Function 12/06/18 Range/Units 04:23 Total Bilirubin 16.6 H (0.3-1.0) mg/dL AST 141 H (13-39) Units/L ALT 50 (7-52) Units/L Alkaline Phosphatase 432 H (34-104) Units/L Albumin 2.7 L (3.5-5.7) g/dL - ABG Interpretation ABG results: PT/INR, D-dimer PT 14.7 Seconds (9.4-12.1) H 12/02/18 19:55 Consult Discharge Plan - Plan Referrals: Lona Pandya, COFOUNDER [Primary Care Provider] - (4) Alcoholic hepatitis Qualifiers: Ascites presence: without ascites Qualified Code(s): K70.10 - Alcoholic hepatitis without ascites (5) Hypertension Qualifiers: Hypertension type: essential hypertension Qualified Code(s): I10 - Essential (primary) hypertension (6) Cephalgia Qualifiers: Headache type: unspecified Headache chronicity pattern: acute headache Intractability: intractable Qualified Code(s): R51 - Headache
[2018-12-06] MEDS: Ondansetron ODT 4 MG TAB.RAPDIS SL PRN (11:53)
[2018-12-06] MEDS ORDERED: Acetaminophen 325 MG TABLET PO ONE (15:06)
[2018-12-06 18:00] LABS: ANA HEp-2 IgG IFA DETECTED (<1:80)
[2018-12-06 18:01] LABS: Anti Nuclear Ab Pattern SPECKLED
[2018-12-06] MEDS: Melatonin 3 MG TABLET PO PRN (20:21)
[2018-12-07 03:22] LABS: Hematocrit 26.9 % (35.3-44.9); Hemoglobin 8.7 g/dL (11.5-15.4); Mean Corpuscular HGB Conc 32.3 g/dL (31.6-35.5); Mean Corpuscular Hemoglobin 35.4 pg (28.0-33.3); Mean Corpuscular Volume 109.3 fL (83.0-100.0); Mean Platelet Volume 9.6 fL (9.4-12.4); Platelet Count 294 K/mcL (140-400); Red Blood Count 2.46 M/mcL (3.82-4.97); Red Cell Distribution Width 21.6 % (11.5-14.5); White Blood Count 14.1 K/mcL (4.3-11.1)
[2018-12-07 03:49] LABS: BUN/Creatinine Ratio 11 (6-26); Bilirubin,Direct 9.1 mg/dL (0.0-0.2); Bilirubin,Total 15.4 mg/dL (0.3-1.0); Blood Urea Nitrogen 8 mg/dL (6-20); Calcium 8.4 mg/dL (8.6-10.3); Carbon Dioxide 23 mEq/L (23-29); Chloride 104 mEq/L (98-107); Glucose 95 mg/dL (70-105); Osmolality,Calculated 278 (280-300); Potassium 3.6 mEq/L (3.5-5.1); Sodium 135 mEq/L (136-145); eGFR For African Americans > 60 (> 60); eGFR For Non-African Americans > 60 (> 60)
[2018-12-07 03:50] LABS: Alanine Aminotransferase 54 Units/L (7-52); Albumin 2.7 g/dL (3.5-5.7); Alkaline Phosphatase 393 Units/L (34-104); Aspartate Amino Transferase 127 Units/L (13-39); Bilirubin,Indirect 6.3 mg/dL (0.0-1.2); Globulin 2.8 g/dL (2.4-3.5); Total Protein 5.5 g/dL (6.4-8.9)
[2018-12-07] MEDS ORDERED: traMADol 50 MG TABLET PO ONE (07:00)
[2018-12-07] MEDS: Ondansetron ODT 4 MG TAB.RAPDIS SL PRN (07:46)
[2018-12-07] MEDS: Vitamin B Complex/Vit C/Vit E 1 EACH TABLET PO SCH (09:12)
[2018-12-07] MEDS: Lactulose Oral Soln 20 GM/30 ML UDC PO SCH (09:12)
[2018-12-07] MEDS: Thiamine (B-1) 100 MG TABLET PO SCH (09:12)
[2018-12-07] MEDS: PrednisoLONE Oral Soln 15 MG/5 ML UDC PO SCH (09:12)
[2018-12-07] MEDS: Metoprolol XL (24 HR) Succ 25 MG TAB.ER.24H PO SCH (09:12)
[2018-12-07] MEDS: Folic Acid 1 MG TABLET PO SCH (09:12)
--- NOTE | 2018-12-07 09:37 | Internal Med Progress Note ---
<Kenton Carvalho Ugo - Last Filed: 12/07/18 12:44> Hospitalist Progress Note - Encounter Date of Encounter: 12/07/18 Time of Encounter: 09:49 - Subjective Interval History: Pt is awake, alert, in bed, appears comfortable. No acute events overnight. Continues to endorse right sided headache that is only mildly improved. Head CT was negative. She states that her right sided abdominal pain remains. Still having some moderate to severe pruritus at the neck and lower back. Denies tremor, hallucinations, cp, sob, dizziness, focal weakness. - Exam Vitals: Temp Pulse Resp BP Pulse Ox 98.1 F 81 16 111/70 95 12/07/18 06:40 12/07/18 06:40 12/07/18 06:40 12/07/18 06:40 12/07/18 06:40 Exam: Gen: Alert and oriented. Jaundiced. HEENT: EOMI, Scleral icterus present, mildly improved. Mucus membranes moist. Cardiovascular: Normal S1 & S2, no murmurs Pulse regular. Lungs: Normal breath sounds. No wheeze, rales, rhonchi. Abdomen: Soft, mild tenderness of RUQ unchanged. BS normoactive. Extremities: No deformity, no edema or tenderness, pulses symmetric. Neurological: Normal cognition and motor skills. No asterixis. No temporal artery tenderness. CN grossly intact. No weakness or other focal neuro deficit Skin: Jaundice, improving. Livedo reticularis unchanged. - Assessment and Plan (1) Alcoholic hepatitis Current Visit: Yes Status: Acute Assessment and Plan: Pt previously admitted for alcoholic hepatitis. Total bilirubin down from 19.3 on admission to 15.4 today. Patient still with significant RUQ tenderness. Leukocytosis present, likely secondary to steroids. - HIDA ordered to investigate for GB disease. NPO at midnight. - GI re-consulted. - Continue Prednisolone 40 mg daily. - Continue to monitor hepatic panel daily. - Livedo reticularis, will continue to monitor. (2) Hypokalemia Current Visit: Yes Status: Acute Assessment and Plan: Potassium of 2.6 noted on admission. Pt up from 3.2 to 3.6 since additional repletion. Asymptomatic at this time. - Repeat potassium. Supp as necessary. (3) Hyperammonemia Current Visit: Yes Status: Acute Assessment and Plan: Pt with elevated ammonia level on admission. No evidence of hepatic encephalopathy at this time. Pt appears to be improving. - Continue 20 g lactulose daily. - Titrate to 2-4 stools per day. (4) Anemia Current Visit: Yes Status: Chronic Assessment and Plan: Patient was noted to have mild microcytic anemia, hemoglobin 10.0 on admission. Apparent baseline of 11. Repeat Hbg of 8.7 today, likely secondary to vaginal bleeding or liver dysfunction. - Continue to monitor. - Monitor CBC, transfuse PRBC as needed per GI. (5) Livedo reticularis Current Visit: Yes Status: Acute (6) Alcohol abuse Current Visit: Yes Status: Chronic Assessment and Plan: History of chronic alcohol use, [facility] protocol in place. - Abstain from alcohol. - Ativan as needed. - Continue multivitamins. (7) Cephalgia Current Visit: Yes Status: Acute Assessment and Plan: Patient with tension type right sided headache. Likely caffiene or EtOH withdrawl in etiology. Head CT negative for acute process. No temporal art tenderness, visual changes, focal deficits. - Migraine cocktail for pain. - Continue to monitor. DVT Prophylaxis: intermittent pneumatic compression - Time Spent with Patient Total time spent is greater than 50% in coordination of care (as documented) at patient's floor/unit and/or counseling patient: Plan of Care Discussed with: patient Internal Medicine: Result - Labs CBC & Chem 7: 12/07/18 02:34 12/07/18 02:34 Labs: Short CBC 12/07/18 Range/Units 02:34 WBC 14.1 H (4.3-11.1) K/mcL Hgb 8.7 L (11.5-15.4) g/dL Hct 26.9 L (35.3-44.9) % Plt Count 294 (140-400) K/mcL BMP 12/07/18 02:34 Sodium 135 L Potassium 3.6 Chloride 104 Carbon Dioxide 23 BUN 8 Creatinine 0.71 Glucose 95 Calcium 8.4 L Liver Function 12/07/18 Range/Units 02:34 Total Bilirubin 15.4 H (0.3-1.0) mg/dL Direct Bilirubin 9.1 H (0.0-0.2) mg/dL AST 127 H (13-39) Units/L ALT 54 H (7-52) Units/L Alkaline Phosphatase 393 H (34-104) Units/L Albumin 2.7 L (3.5-5.7) g/dL - ABG Interpretation ABG results: PT/INR, D-dimer PT 14.7 Seconds (9.4-12.1) H 12/02/18 19:55 - Impressions Impressions Head CT 12/06/18 17:00 IMPRESSION: No acute intracranial abnormality. D/ / Don Oreilly MD / Don Oreilly MD Interpreting Provider: Don Oreilly MD Consult Discharge Plan - Plan Referrals: Lona Pandya CNP [Primary Care Provider] - <Pablo Phelps - Last Filed: 12/07/18 15:21> Hospitalist Progress Note - Encounter Date of Encounter: 12/07/18 - Exam Vitals: Temp Pulse Resp BP Pulse Ox 98.4 F 84 16 113/71 98 12/07/18 10:30 12/07/18 10:30 12/07/18 10:30 12/07/18 10:30 12/07/18 10:30 - Assessment and Plan (1) Hypokalemia Current Visit: Yes Status: Acute (2) Livedo reticularis Current Visit: Yes Status: Acute (3) Alcohol abuse Current Visit: Yes Status: Chronic (4) Alcoholic hepatitis Current Visit: Yes Status: Acute (5) Hypertension Current Visit: No Status: Chronic (6) Cephalgia Current Visit: Yes Status: Acute - Time Spent with Patient Total time spent is greater than 50% in coordination of care (as documented) at patient's floor/unit and/or counseling patient: Internal Medicine: Result - Labs CBC & Chem 7: 12/07/18 02:34 12/07/18 02:34 Labs: Short CBC 12/07/18 Range/Units 02:34 WBC 14.1 H (4.3-11.1) K/mcL Hgb 8.7 L (11.5-15.4) g/dL Hct 26.9 L (35.3-44.9) % Plt Count 294 (140-400) K/mcL BMP 12/07/18 02:34 Sodium 135 L Potassium 3.6 Chloride 104 Carbon Dioxide 23 BUN 8 Creatinine 0.71 Glucose 95 Calcium 8.4 L Liver Function 12/07/18 Range/Units 02:34 Total Bilirubin 15.4 H (0.3-1.0) mg/dL Direct Bilirubin 9.1 H (0.0-0.2) mg/dL AST 127 H (13-39) Units/L ALT 54 H (7-52) Units/L Alkaline Phosphatase 393 H (34-104) Units/L Albumin 2.7 L (3.5-5.7) g/dL - ABG Interpretation ABG results: PT/INR, D-dimer PT 14.7 Seconds (9.4-12.1) H 12/02/18 19:55 - Impressions Impressions Head CT 12/06/18 17:00 IMPRESSION: No acute intracranial abnormality. D/ / Don Oreilly MD / Don Oreilly MD Interpreting Provider: Don Oreilly MD - Attending Attestation I examined this patient and my medical decision-making was reviewed with the Resident Physician on 12/07/18. I agree with the documented findings, disposition and treatment plan as described except to the extent set forth below. Ms Kirkpatrick is currently admitted for alcoholic hepatitis and cephalgia. She remains moderate to high risk due to potential for worsening clinical status. Ms Kirkpatrick still has some abd pain and headache. Headache is on L side of head. No fever or chills. No CP or SOB. Still with RUQ discomfort. Exam Alert. Comfortable Mucus membranes dry Neck supple Heart not tachy. No wheeze abd still with RUQ discomfort No edema LFTs slowly improving. Plan Treat for migraine. HIDA scan tomorrow. Possible d/c tomorrow. <Kenton Carvalho - Last Filed: 12/07/18 12:44> (1) Alcoholic hepatitis Qualifiers: Ascites presence: without ascites Qualified Code(s): K70.10 - Alcoholic hepatitis without ascites (4) Anemia Qualifiers: Anemia type: unspecified type Qualified Code(s): D64.9 - Anemia, unspecified (7) Cephalgia Qualifiers: Headache type: unspecified Headache chronicity pattern: acute headache Intractability: intractable Qualified Code(s): R51 - Headache <Pablo Phelps - Last Filed: 12/07/18 15:21> (4) Alcoholic hepatitis Qualifiers: Ascites presence: without ascites Qualified Code(s): K70.10 - Alcoholic hepatitis without ascites (5) Hypertension Qualifiers: Hypertension type: essential hypertension Qualified Code(s): I10 - Essential (primary) hypertension (6) Cephalgia Qualifiers: Headache type: unspecified Headache chronicity pattern: acute headache In tractability: intractable Qualified Code(s): R51 - Headache
--- NOTE | 2018-12-07 11:43 | Electrocardiograph Report ---
[address] [place], [place] [address] Test Date: 2018-12-02 Pat Name: Venice Kirkpatrick Department: EXAM21 Room: 2A16 Gender: Director Of Recruiting: : 1970 Requested By: Alie Brown Order Number: [id number] Reading MD: Elder Medel Measurements Intervals [place] Rate: 95 P: 25 LA: 197 QRS: 58 QRSD: 92 T: -11 QT: 357 QTc: 449 Interpretive Statements Sinus rhythm Borderline prolonged LA interval Low voltage, precordial leads Anteroseptal infarct, old Electronically Signed On 12-07-2018 11:41:30 EDT by Elder Medel
[2018-12-07] MEDS ORDERED: Prochlorperazine 10 MG/2 ML VIAL IVP ONE (12:37)
[2018-12-07] MEDS ORDERED: Ketorolac 30 MG/ML VIAL IVP ONE (12:38)
[2018-12-08 05:20] LABS: Basophils % 0.2 %; Eosinophils % 0.2 %; Hematocrit 27.6 % (35.3-44.9); Hemoglobin 9.1 g/dL (11.5-15.4); Immature Granulocytes % 1.9 % (0-4); Lymphocytes # 1.6 K/mcL (0.6-4.6); Lymphocytes % 9.4 %; Mean Corpuscular Hemoglobin 36.1 pg (28.0-33.3); Mean Corpuscular Volume 109.5 fL (83.0-100.0); Mean Platelet Volume 9.9 fL (9.4-12.4); Monocytes # 0.8 K/mcL (0.0-1.3); Monocytes % 4.4 %; Neutrophils # 14.4 K/mcL (1.6-8.9); Nucleated Red Blood Cells 0.1 /100 WBC (0); Platelet Count 305 K/mcL (140-400); Red Blood Count 2.52 M/mcL (3.82-4.97); Segmented Neutrophils % 83.9 %; White Blood Count 17.2 K/mcL (4.3-11.1)
[2018-12-08 05:40] LABS: Alanine Aminotransferase 62 Units/L (7-52); Albumin 2.7 g/dL (3.5-5.7); Alkaline Phosphatase 360 Units/L (34-104); Aspartate Amino Transferase 131 Units/L (13-39); BUN/Creatinine Ratio 16 (6-26); Bilirubin,Direct 8.1 mg/dL (0.0-0.2); Bilirubin,Indirect 5.6 mg/dL (0.0-1.2); Bilirubin,Total 13.7 mg/dL (0.3-1.0); Blood Urea Nitrogen 10 mg/dL (6-20); Calcium 8.2 mg/dL (8.6-10.3); Carbon Dioxide 19 mEq/L (23-29); Chloride 107 mEq/L (98-107); Globulin 2.8 g/dL (2.4-3.5); Glucose 78 mg/dL (70-105); Osmolality,Calculated 278 (280-300); Potassium 3.6 mEq/L (3.5-5.1); Sodium 135 mEq/L (136-145); Total Protein 5.5 g/dL (6.4-8.9); eGFR For African Americans > 60 (> 60); eGFR For Non-African Americans > 60 (> 60)
--- NOTE | 2018-12-08 07:44 | Internal Med Progress Note ---
Hospitalist Progress Note - Encounter Date of Encounter: 12/08/18 Time of Encounter: 07:43 - Exam Vitals: Temp Pulse Resp BP Pulse Ox 98 F 65 16 106/66 98 12/08/18 03:32 12/08/18 03:32 12/08/18 03:32 12/08/18 03:32 12/08/18 03:32 Exam: Gen: Alert and oriented. Jaundiced. HEENT: EOMI, Scleral icterus present, mildly improved. Mucus membranes moist. Cardiovascular: Normal S1 & S2, no murmurs Pulse regular. Lungs: Normal breath sounds. No wheeze, rales, rhonchi. Abdomen: Soft, mild tenderness of RUQ unchanged. BS normoactive. Extremities: No deformity, no edema or tenderness, pulses symmetric. Neurological: Normal cognition and motor skills. No asterixis. No temporal artery tenderness. CN grossly intact. No weakness or other focal neuro deficit Skin: Jaundice, improving. Livedo reticularis unchanged. - Assessment and Plan (1) Alcoholic hepatitis Current Visit: Yes Status: Acute (2) Hypokalemia Current Visit: Yes Status: Acute (3) Hyperammonemia Current Visit: Yes Status: Acute (4) Anemia Current Visit: Yes Status: Chronic (5) Livedo reticularis Current Visit: Yes Status: Acute (6) Alcohol abuse Current Visit: Yes Status: Chronic (7) Cephalgia Current Visit: Yes Status: Acute - Time Spent with Patient Total time spent is greater than 50% in coordination of care (as documented) at patient's floor/unit and/or counseling patient: Internal Medicine: Result - Labs CBC & Chem 7: 12/08/18 04:39 12/08/18 04:39 Labs: Short CBC 12/08/18 Range/Units 04:39 WBC 17.2 H (4.3-11.1) K/mcL Hgb 9.1 L (11.5-15.4) g/dL Hct 27.6 L (35.3-44.9) % Plt Count 305 (140-400) K/mcL Neutrophils # 14.4 H (1.6-8.9) K/mcL BMP 12/08/18 04:39 Sodium 135 L Potassium 3.6 Chloride 107 Carbon Dioxide 19 L BUN 10 Creatinine 0.61 Glucose 78 Calcium 8.2 L Liver Function 12/08/18 Range/Units 04:39 Total Bilirubin 13.7 H (0.3-1.0) mg/dL Direct Bilirubin 8.1 H (0.0-0.2) mg/dL AST 131 H (13-39) Units/L ALT 62 H (7-52) Units/L Alkaline Phosphatase 360 H (34-104) Units/L Albumin 2.7 L (3.5-5.7) g/dL - ABG Interpretation ABG results: PT/INR, D-dimer PT 14.7 Seconds (9.4-12.1) H 12/02/18 19:55 - Impressions Impressions Bile Acid Absorption NM 12/08/18 07:09 IMPRESSION: No evidence of acute cholecystitis. Delayed washout of hepatic activity is seen, which can be seen in the setting of underlying hepatocellular dysfunction. Correlate with LFT. D/ / Yaya Mcallister MD / Yaya Mcallister MD Interpreting Provider: Yaya Mcallister MD Consult Discharge Plan - Plan Referrals: Lona Pandya, FITNESS PLAN COORDINATOR [Primary Care Provider] - (1) Alcoholic hepatitis Qualifiers: Ascites presence: without ascites Qualified Code(s): K70.10 - Alcoholic hepatitis without ascites (4) Anemia Qualifiers: Anemia type: unspecified type Qualified Code(s): D64.9 - Anemia, unspecified (7) Cephalgia Qualifiers: Headache type: unspecified Headache chronicity pattern: acute headache Intractability: intractable Qualified Code(s): R51 - Headache
[2018-12-08] MEDS: Lactulose Oral Soln 20 GM/30 ML UDC PO SCH (08:57)
[2018-12-08] MEDS: PrednisoLONE Oral Soln 15 MG/5 ML UDC PO SCH (08:57)
[2018-12-08] MEDS: Vitamin B Complex/Vit C/Vit E 1 EACH TABLET PO SCH (08:59)
[2018-12-08] MEDS: Thiamine (B-1) 100 MG TABLET PO SCH (08:59)
[2018-12-08] MEDS: Folic Acid 1 MG TABLET PO SCH (08:59)
[2018-12-08] MEDS: Metoprolol XL (24 HR) Succ 25 MG TAB.ER.24H PO SCH (08:59)
[2018-12-08] MEDS ORDERED: Ketorolac 30 MG/ML VIAL IVP ONE (10:24)
[2018-12-08] MEDS ORDERED: Prochlorperazine 10 MG/2 ML VIAL IVP ONE (10:24)
--- NOTE | 2018-12-08 10:47 | Discharge Summary ---
<Kenton Carvalho Ugo - Last Filed: 12/08/18 13:08> - NOTES TO OUTPATIENT PROVIDER Notes to Outpatient Provider: Ms. Kirkpatrick is a 48 y/o F w/history of alcoholic hepatitis who presented to [facility] on 12/02/18 complaining of abdominal pain and jaundice. She also reported chronic, intermittent vaginal bleeding. Gastroen terology was consulted and recommended MRCP that was negative for obstructive jaundice. She had significant elevations in bilirubin and the patient was admitted for alcoholic jaundice. Patient was treated with supportative care, steroids, and CIWA protocol was initiated with improvement in symptoms on hospital day 4. At discharge, patient was given prescription for acamprosate and prednisolone and told to abstain from all alcohol. She was told to follow up with PCP, GI, and [employer] for continued management. Orders not resulted at time of discharge: Pending orders 12/07/18 16:52 Anti-DNA DS, IgG with reflex Routine Date of Encounter: 12/08/18 Time of Encounter: 10:45 - Discharge Diagnosis (1) Alcoholic hepatitis Priority: Primary Status: Chronic Assessment and Plan: Pt previously admitted for alcoholic hepatitis. Total bilirubin down from 19.3 on admission to 13.7 at discharge. Patient still with mild RUQ tenderness. Leukocytosis present, likely secondary to steroids. - Prednisolone 40 mg taper. 40mg daily x 1 week, 20mg daily x 1 week, 10mg daily x 1 week. - Acamprosate 666 mg TID for alcohol use disorder. - Follow-up with Dr. Hinds at [facility] and your PCP. Qualifiers: Ascites presence: without ascites Qualified Code(s): K70.10 - Alcoholic hepatitis without ascites (2) Hypokalemia Priority: Secondary Status: Resolved Assessment and Plan: Potassium of 2.6 noted on admission. Pt up from 3.2 to 3.6 since additional repletion. Patient remained asymptomatic. - Follow up with PCP. (3) Hyperammonemia Priority: Secondary Status: Chronic Assessment and Plan: Pt with elevated ammonia level on admission without evidence of hepatic encephalopathy. - Continue 20 g lactulose daily at discharge. - Follow up with gastroenterology and PCP. (4) Alcohol abuse Priority: Secondary Status: Chronic Assessment and Plan: History of chronic alcohol use. - Abstain from alcohol. - Acamprosate 666 mg TID for cravings. - Abstention material provided. - Continue multivitamins at discharge. (5) Anemia Priority: Secondary Status: Chronic Assessment and Plan: Patient was noted to have mild microcytic anemia, hemoglobin 10.0 on admission. Apparent baseline of 11. Likely secondary to vaginal bleeding or liver dysfunction. - Follow-up with PCP. - Follow-up with [employer] for vaginal bleeding. 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 Likely caffiene or EtOH withdrawl in etiology. Head CT negative for acute process. No temporal art tenderness, visual changes, focal deficits. - 10 mg Compazine Q6H at discharge. To be taken with OTC benadryl and/or Ibuprofen. - F/U with PCP. Qualifiers: Headache type: unspecified Headache chronicity pattern: acute headache Intractability: intractable Qualified Code(s): R51 - Headache Hospital course: Ms. Kirkpatrick is a 48 year old female with past medical history of hypertension, anxiety, GERD, and alcoholic hepatitis. She presented to this hospital earlier this year for painless jaundice. Workup at that time consisted of labs and imaging significant for elevated liver and cholestasis enzymes. She was diagnosed with alcoholic hepatitis and discharged in stable condition with a plan for alcohol cessation and nutritional supplementation. She did have resolution of her symptoms including resolution of jaundice and scleral icterus. She also did not comply with alcohol cessation, but did decrease her drinking from approximately 6 drinks per day to 3 drinks per day. Approximately one month ago she began having symptoms of fatigue and malaise. Approximately one month ago she also had the onset of vaginal bleeding whereas she had not bled for 11 months prior, and thought she had reached menopause. Labs on admission significant for leukocytosis of 15.3, macrocytic anemia with hemoglobin of 10.0, hypokalemia with potassium of 2.6, hyperbilirubinemia, elevated GGT, transaminitis and elevated alkaline phosphatase, and hyperammonemia. Gastroenterology consultation was requested who recommended hepatitis panel and MRCP. Patient was transferred to hospitalist service for admission. MRCP: 1. Nonspecific periportal edema can be seen with hepatitis. 2. Trace ascites right upper quadrant is likely reactive. 3. Contracted mildly thick walled gallbladder with pericholecystic fluid is nonspecific. Acalculous cholecystitis is a consideration. Correlate with HIDA scan. 4. Unremarkable appearance of the common bile duct and pancreatic duct. 5. Hepatic steatosis and hepatomegaly. HIDA: No evidence of acute cholecystitis. Delayed washout of hepatic activity is seen, which can be seen in the setting of underlying hepatocellular dysfunction. Correlate with LFT. Patient was started on Solu-medrol on hospital day 2 for alcoholic hepatits and was later transitioned to PO prednisolone. She was also treated with multivitamins and supportative care with [facility] protocol in place. Alcohol withdrawl was managed with Ativan. She began to improve drastically on hospital day 4 although she remained jaundiced. 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 Discharge discussed with: patient, nurse - Time Spent with Patient Total time spent providing and/or coordinating discharge services: Time spent: Greater than 30 minutes - Discharge Medications Prescriptions: New Acamprosate Calcium 666 mg PO TID 30 Days #90 tablet. Folic Acid 1 mg PO DAILY 30 Days #30 tablet PrednisoLONE [Millipred] 5 mg PO TAPER 21 Days #98 tablet Vitamin B Complex/Vit C/Vit E [Stresstab] 1 each PO DAILY 30 Days #30 tablet Thiamine (B-1) [Vitamin B-1] 100 mg PO DAILY 30 Days #30 tablet Prochlorperazine Maleate [Compazine] 10 mg PO Q6HR 5 Days #20 tablet Continued Lactulose 20 gm PO BID PRN PRN Reason: Constipation Ondansetron HCl [Zofran] 4 mg PO Q6H PRN PRN Reason: Nausea Metoprolol Succinate [Toprol Xl] 25 mg PO DAILY Pantoprazole Sodium [Protonix] 40 mg PO DAILY Home Medications: Lactulose 20 gm PO BID PRN 04/21/18 [History] Metoprolol Succinate [Toprol Xl] 25 mg PO DAILY 04/21/18 [History] Ondansetron HCl [Zofran] 4 mg PO Q6H PRN 04/21/18 [History] Pantoprazole Sodium [Protonix] 40 mg PO DAILY 04/21/18 [History] Acamprosate Calcium 666 mg PO TID 30 Days #90 tablet. 12/08/18 [Rx] Folic Acid 1 mg PO DAILY 30 Days #30 tablet 12/08/18 [Rx] PrednisoLONE [Millipred] 5 mg PO TAPER 21 Days #98 tablet 12/08/18 [Rx] Prochlorperazine Maleate [Compazine] 10 mg PO Q6HR 5 Days #20 tablet 12/08/18 [Rx] Thiamine (B-1) [Vitamin B-1] 100 mg PO DAILY 30 Days #30 tablet 12/08/18 [Rx] Vitamin B Complex/Vit C/Vit E [Stresstab] 1 each PO DAILY 30 Days #30 tablet 12/08/18 [Rx] Allergies/Adverse Reactions: Allergy/AdvReac Type Severity Reaction Status Date / Time Penicillins AdvReac Hives Verified 04/20/18 17:52 Date of admission: 12/04/18 15:03 Primary care physician: Lona Pandya CNP Consults: 12/02/18 16:27 Consult to Gastroenterology [CONS] Stat Consulting Provider: Gastroenterology Reynolds Reason for Consult: jaundice Call Completed: Yes 12/02/18 18:00 Consult to Nutrition [CONS] Routine Comment: Consulting Provider: NUTRITION Reason for Dietary Consult: MST Score Discharging clinician: Kenton Carvalho Anticipated date of discharge: 12/08/18 - Constitutional Vitals: Temp Pulse Resp BP Pulse Ox 98.5 F 81 16 103/62 98 12/08/18 08:04 12/08/18 08:04 12/08/18 08:04 12/08/18 08:04 12/08/18 08:04 General appearance: Present: A&O X 3, pleasant Exam: see below - Head Head exam: Present: atraumatic, normocephalic - Eye Eye exam: Present: EOMI, PERRL, scleral icterus - ENT ENT exam: Present: mucous membranes moist, normal oropharynx - Neck Neck exam general surgery: Present: normal inspection, supple, trachea midline - Respiratory Respiratory exam: Present: CTAB. Absent: rales, rhonchi, wheezes - Cardiovascular Cardiovascular exam: Present: RRR, +S1, +S2. Absent: diastolic murmur, JVD, systolic murmur - GI/Abdominal GI/Abdominal exam: Present: hepatomegaly, normal bowel sounds, soft, tenderness (RUQ). Absent: rebound, rigid - Extremities Exam Extremities exam: Present: cyanotic. Absent: joint swelling, pedal edema, tenderness - Neurological Exam Neurological exam: Present: CN II-XII intact, no focal deficits - Psychiatric Psychiatric exam: Present: normal affect, normal mood - Skin Additional comments: Generalized jaundice has improved since admission. Livedo reticularis present at the lumbar region bilaterally with associated pruritus. - Patient Status Disposition: Home, Self-Care Condition: Fair Functional capacity at discharge: independent ambulation Overall status at discharge: patient is progressing back to baseline - Discharge Instructions Follow Up With: Alfredo Hinds MD [Partnered Physician] - (Web request - office will call you) Lona Pandya CNP [Primary Care Provider] - 12/11/18 10:30 am Additional Instructions: You have been prescribed a steroid taper named prednisolone, it is vital that you take this as prescribed. You have also been prescribed a medication named acamprosate to help with alcohol cravings, it is also important that you take this medication as prescribed. You have also been prescribed 10 mg of Compazine which can be taken with OTC Benadryl or Ibuprofen for headaches. Please follow-up with your primary care provider within the next 3-5 days to discuss continued abstinence from alcohol. Please follow-up with your [employer] or PCP provider for management of intermittent vaginal bleeding. It is also important that you follow-up with Dr. Hinds in gastroenterology within the next 1-2 weeks. It is crucial that you avoid alcohol at this time. Please follow-up with your PCP for additional resources. If you develop worsening abdominal pain, jaundice, or develop chest pain, shortness of breath, nausea, vomiting please go to your nearest emergency department. - Diet and Activity Activity: increase activity as tolerated Diet: advance to your usual diet <Pablo Phelps - Last Filed: 12/08/18 14:53> Orders not resulted at time of discharge: Pending orders 12/07/18 16:52 Anti-DNA DS, IgG with reflex Routine Date of Encounter: 12/08/18 - Discharge Diagnosis (1) Hypokalemia Status: Resolved (2) Livedo reticularis Status: Chronic (3) Alcohol abuse Status: Chronic (4) Alcoholic hepatitis Status: Chronic Qualifiers: Ascites presence: without ascites Qualified Code(s): K70.10 - Alcoholic hepatitis without ascites (5) Hypertension Priority: Secondary Status: Chronic Qualifiers: Hypertension type: essential hypertension Qualified Code(s): I10 - Essential (primary) hypertension (6) Cephalgia Status: Acute Qualifiers: Headache type: unspecified Headache chronicity pattern: acute headache Intractability: intractable Qualified Code(s): R51 - Headache Hospital course: Ms. Kirkpatrick is a 48 year old female - Time Spent with Patient Total time spent providing and/or coordinating discharge services: 37min Date of admission: 12/04/18 15:03 Primary care physician: Lona Pandya CNP Consults: 12/02/18 16:27 Consult to Gastroenterology [CONS] Stat Consulting Provider: Gastroenterology Cathy Reason for Consult: jaundice Call Completed: Yes 12/02/18 18:00 Consult to Nutrition [CONS] Routine Comment: Consulting Provider: NUTRITION Reason for Dietary Consult: MST Score - Constitutional Vitals: Temp Pulse Resp BP Pulse Ox 98.5 F 79 16 115/74 99 12/08/18 10:51 12/08/18 10:51 12/08/18 10:51 12/08/18 10:51 12/08/18 10:51 - Attending Attestation I examined this patient and my medical decision-making was reviewed with the Resident Physician on 12/08/18. I agree with the documented findings, disposition and treatment plan as described except to the extent set forth below. Ms Kirkpatrick has been admitted for acute alcoholic hepatitis. She has had steady improvement with steroids. She had minimal alcohol withdrawal and will be started on acamprosate at discharge. She has had issues with headache and had received different treatments. CT negative. Currently afebrile. Exam Alert. Comfortable. NC. EOMI. Mucus membranes dry. NEck supple. Less jaundice. Heart not tachy. No edema Plan D/C home with steroids and taper. Acamprosate Compazine (plus benadry and motrin) for headache Follow up with PCP and GI Alcohol cessation.
[2018-12-08 10:52] VITALS: BP 115/74
[2018-12-08] MEDS: Ondansetron ODT 4 MG TAB.RAPDIS SL PRN (11:20)
== END 2018-12-08 14:27 | disposition home or self-care (01) | DRG 433 ==
LOC: EMEROOARM 15:07 → 2ANU 15:07 → SUATTDRO 17:00 → 2ANU 17:25
PROVIDERS: ADMIT Internal Medicine; ATTEND Internal Medicine

== ENCOUNTER 2020-04-03 19:34 | Observation (INO) ==
[2020-04-03 20:45] LABS: Bacteria,Urine Few per hpf (None-Few); Bilirubin,Urine Small (Negative); Blood,Urine Moderate (Negative); Clarity,Urine Clear (Clear); Color,Urine Light-Yellow (Yellow); Glucose,Urine (UA) Normal (Normal); Ketones,Urine Negative (Negative); Leukocyte Esterase,Urine Negative (Negative); Mucus,Urine Few per lpf (None-Few); Nitrite,Urine Negative (Negative); Protein,Urine Trace mg/dL (Neg-Trace); RBC,Urine 0-3 per hpf (0-3); Specific Gravity,Urine 1.009 (1.010-1.025); Squamous Epithelial Cell,Urine Moderate per hpf (None-Few); Urobilinogen,Urine Normal (Normal)
[2020-04-03 20:47] LABS: Basophils # 0.1 K/mcL (0.0-0.2); Basophils % 1.3 %; Eosinophils # 0.2 K/mcL (0.0-0.6); Eosinophils % 2.3 %; Hematocrit 46.6 % (35.3-44.9); Immature Granulocytes % 0.7 % (0-4); Lymphocytes # 2.9 K/mcL (0.6-4.6); Lymphocytes % 31.4 %; Mean Corpuscular HGB Conc 32.2 g/dL (31.6-35.5); Mean Corpuscular Hemoglobin 32.2 pg (28.0-33.3); Mean Platelet Volume 10.1 fL (9.4-12.4); Monocytes # 0.6 K/mcL (0.0-1.3); Monocytes % 6.4 %; Neutrophils # 5.3 K/mcL (1.6-8.9); Platelet Count 218 K/mcL (140-400); Red Blood Count 4.66 M/mcL (3.82-4.97); Red Cell Distribution Width 13.1 % (11.5-14.5); Segmented Neutrophils % 57.9 %; White Blood Count 9.1 K/mcL (4.3-11.1)
[2020-04-03 20:58] LABS: Acetaminophen < 10 mcg/mL (10-20); BUN/Creatinine Ratio 13 (6-26); Blood Urea Nitrogen 8 mg/dL (6-20); Calcium 9.7 mg/dL (8.6-10.3); Carbon Dioxide 21 mEq/L (23-29); Chloride 111 mEq/L (98-107); Chol/HDL Ratio 5.6 (0-4.9); Cholesterol 267 mg/dL (< 200); Ethanol 302 mg/dL (Less than 10); Glucose 105 mg/dL (70-105); HDL Cholesterol 48 mg/dL (40-59); LDL Cholesterol,Calculated 174 mg/dL (< 100); Osmolality,Calculated 295 (280-300); Potassium 3.5 mEq/L (3.5-5.1); Salicylate < 2.5 mg/dL (15.0-30.0); Sodium 143 mEq/L (136-145); Triglycerides 223 mg/dL (< 150); eGFR For African Americans > 60 (> 60); eGFR For Non-African Americans > 60 (> 60)
[2020-04-03 21:30] LABS: Amphetamine Screen,Urine Negative ng/mL (Cutoff=1000); Barbiturate Screen,Urine Negative ng/mL (Cutoff=200); Benzodiazepines Screen,Urine Negative ng/mL (Cutoff=200); Cannabinoid Screen,Urine Negative ng/mL (Cutoff = 50); Cocaine Screen,Urine Negative ng/mL (Cutoff= 300); Opiate Screen,Urine Negative ng/mL (Cutoff=300); Phencyclidine Screen,Urine Negative ng/mL (Cutoff=25)
[2020-04-03 21:39] LABS: Estimated Average Glucose 114 mg/dl; Hemoglobin A1C 5.6 %
[2020-04-03] MEDS ORDERED: Ondansetron 4 MG/2 ML VIAL IVP PRN (22:08)
[2020-04-03] MEDS ORDERED: Naloxone 0.4 MG/ML INJ IVP PRN (22:08)
[2020-04-03] MEDS ORDERED: *HR* LORazepam 2 MG/ML VIAL IVP PRN ×3 (22:08)
[2020-04-03] MEDS: Folic Acid 1 MG in 0.9 % Sodium Chloride 50 ML IVPB SCH (23:22)
[2020-04-04] MEDS: Thiamine (B-1) 200 MG in 0.9 % Sodium Chloride 50 ML IVPB SCH ×2 (00:55→10:25)
[2020-04-04] MEDS ORDERED: Metoprolol XL (24 HR) Succ 25 MG TAB.ER.24H PO SCH (09:00)
[2020-04-04] MEDS: Folic Acid 1 MG in 0.9 % Sodium Chloride 50 ML IVPB SCH (10:26)
[2020-04-04 11:12] VITALS: BP 159/92
[2020-04-04] MEDS ORDERED: lisinopriL 10 MG TABLET PO SCH (13:15)
[2020-04-04] MEDS ORDERED: *HR* Heparin 5,000 UNIT/ML VIAL SQ SCH (14:00)
== END 2020-04-04 16:19 ==
LOC: EMEROOARM 19:34 → 3BNU 19:34 → SUATTDRO 21:56 → 3BNU 21:59
PROVIDERS: ADMIT Family Medicine; ATTEND Internal Medicine

== ENCOUNTER 2021-01-15 10:25 | Inpatient (IN) ==
[2021-01-15] MEDS ORDERED: 0.9 % Sodium Chloride 1,000 ML IVC ONE (10:28)
[2021-01-15 11:08] LABS: Immature Granulocytes % 1.3 % (0-4); Mean Platelet Volume 10.7 fL (9.4-12.4); Nucleated Red Blood Cells 0.1 /100 WBC (0); Segmented Neutrophils % 82.9 %
[2021-01-15 11:10] LABS: Basophils # 0.1 K/mcL (0.0-0.2); Basophils % 0.4 %; Eosinophils # 0.1 K/mcL (0.0-0.6); Eosinophils % 0.4 %; Hematocrit 24.7 % (35.3-44.9); Hemoglobin 9.1 g/dL (11.5-15.4); Lymphocytes # 2.2 K/mcL (0.6-4.6); Lymphocytes % 9.5 %; Mean Corpuscular HGB Conc 36.8 g/dL (31.6-35.5); Mean Corpuscular Hemoglobin 33.7 pg (28.0-33.3); Mean Corpuscular Volume 91.5 fL (83.0-100.0); Monocytes % 5.5 %; Platelet Count 147 K/mcL (140-400); Red Cell Distribution Width 15.8 % (11.5-14.5); White Blood Count 22.7 K/mcL (4.3-11.1)
[2021-01-15 11:34] LABS: INR 1.3; Prothrombin Time 14.4 Seconds (9.4-12.1)
[2021-01-15 12:08] LABS: Monocytes # 1.3 K/mcL (0.0-1.3); Neutrophils # 18.8 K/mcL (1.6-8.9)
[2021-01-15 12:14] LABS: Albumin 2.9 g/dL (3.5-5.7); Albumin/Globulin Ratio 0.9 (1.1-2.2); Bilirubin,Direct 7.8 mg/dL (0.0-0.2); Bilirubin,Total 13.8 mg/dL (0.3-1.0); Calcium 8.6 mg/dL (8.6-10.3); Globulin 3.4 g/dL (2.4-3.5); Potassium 3.4 mEq/L (3.5-5.1); Total Protein 6.3 g/dL (6.4-8.9)
[2021-01-15] MEDS ORDERED: Naloxone 0.4 MG/ML INJ IVP PRN (14:38)
[2021-01-15] MEDS ORDERED: Lactulose Oral Soln 20 GM/30 ML UDC PO ONE (14:50)
[2021-01-15] MEDS ORDERED: *HR* LORazepam 2 MG/ML VIAL IVP PRN ×3 (14:50)
[2021-01-15] MEDS: *HR* LORazepam 1 MG TABLET PO SCH ×2 (16:23→21:00)
[2021-01-15] MEDS: *HR* OxyCODONE Immed Rel 5 MG TABLET PO PRN (16:23)
[2021-01-15] MEDS: Ondansetron 4 MG/2 ML VIAL IVP PRN (16:23)
[2021-01-15 16:27] LABS: Acetaminophen < 10 mcg/mL (10-20); Salicylate < 2.5 mg/dL (15.0-30.0)
[2021-01-15 16:46] LABS: Hepatitis B Surface Antigen Nonreactive (Nonreactive)
[2021-01-15 16:51] LABS: Calcium 7.9 mg/dL (8.6-10.3); Potassium 3.4 mEq/L (3.5-5.1); Uric Acid 6.4 mg/dL (2.3-7.6)
[2021-01-15 17:15] LABS: Hepatitis C Virus Antibody Nonreactive (Nonreactive)
[2021-01-15 17:16] LABS: Hepatitis B Core IgM Nonreactive (Nonreactive)
[2021-01-15 17:17] LABS: Hepatitis A Antibody IgM Nonreactive (Nonreactive)
[2021-01-15] MEDS: Albumin 25% 25gram/100mL 25 GM/100 ML IV.SOLN IVPB SCH ×2 (18:37→21:02)
[2021-01-15] MEDS: *HR* Heparin 5,000 UNIT/ML VIAL SQ SCH (18:37)
[2021-01-15] MEDS: Lactulose Oral Soln 20 GM/30 ML UDC PO SCH (21:05)
[2021-01-15] MEDS: Thiamine (B-1) 100 MG, Folic Acid 1 MG, MVI, adult with vitamin K 10 ML in 0.9 % Sodi... IVPB SCH (23:11)
[2021-01-16 00:24] LABS: Amphetamine Screen,Urine Negative ng/mL (Cutoff=1000); Barbiturate Screen,Urine Negative ng/mL (Cutoff=200); Benzodiazepines Screen,Urine Negative ng/mL (Cutoff=200); Cannabinoid Screen,Urine Negative ng/mL (Cutoff = 50); Cocaine Screen,Urine Negative ng/mL (Cutoff= 300); Opiate Screen,Urine Negative ng/mL (Cutoff=300); Phencyclidine Screen,Urine Negative ng/mL (Cutoff=25)
[2021-01-16 00:31] LABS: Creatinine,Urine 46 mg/dL; Sodium, Urine < 10.0 mEq/L
[2021-01-16 00:35] LABS: Bacteria,Urine Few per hpf (None-Few); Bilirubin,Urine Small (Negative); Blood,Urine Large (Negative); Clarity,Urine Turbid (Clear); Color,Urine Yellow (Yellow); Glucose,Urine (UA) Normal (Normal); Ketones,Urine Negative (Negative); Leukocyte Esterase,Urine Negative (Negative); Mucus,Urine Few per lpf (None-Few); Nitrite,Urine Negative (Negative); Protein,Urine Trace mg/dL (Neg-Trace); Specific Gravity,Urine 1.008 (1.010-1.025); Squamous Epithelial Cell,Urine Few per hpf (None-Few)
[2021-01-16] MEDS: *HR* Heparin 5,000 UNIT/ML VIAL SQ SCH ×2 (05:28→17:35)
[2021-01-16 06:46] LABS: Basophils # 0.1 K/mcL (0.0-0.2); Basophils % 0.4 %; Eosinophils # 0.2 K/mcL (0.0-0.6); Eosinophils % 1.7 %; Hematocrit 21.5 % (35.3-44.9); Hemoglobin 7.8 g/dL (11.5-15.4); Immature Granulocytes % 1.1 % (0-4); Lymphocytes # 1.7 K/mcL (0.6-4.6); Lymphocytes % 13.2 %; Mean Corpuscular HGB Conc 36.3 g/dL (31.6-35.5); Mean Corpuscular Hemoglobin 33.5 pg (28.0-33.3); Mean Corpuscular Volume 92.3 fL (83.0-100.0); Mean Platelet Volume 10.3 fL (9.4-12.4); Monocytes # 0.7 K/mcL (0.0-1.3); Monocytes % 5.6 %; Neutrophils # 10.1 K/mcL (1.6-8.9); Platelet Count 141 K/mcL (140-400); Red Blood Count 2.33 M/mcL (3.82-4.97); Red Cell Distribution Width 16.3 % (11.5-14.5)
[2021-01-16 06:53] LABS: INR 1.4; Prothrombin Time 15.4 Seconds (9.4-12.1)
[2021-01-16 07:05] LABS: Albumin 3.1 g/dL (3.5-5.7); Albumin/Globulin Ratio 1.1 (1.1-2.2); Bilirubin,Direct 7.5 mg/dL (0.0-0.2); Bilirubin,Indirect 5.2 mg/dL (0.0-1.0); Bilirubin,Total 12.7 mg/dL (0.3-1.0); Calcium 8.3 mg/dL (8.6-10.3); Globulin 2.9 g/dL (2.4-3.5); Magnesium 2.4 mg/dL (1.6-2.6); Potassium 2.9 mEq/L (3.5-5.1)
[2021-01-16] MEDS: Metoprolol XL (24 HR) Succ 25 MG TAB.ER.24H PO SCH (07:23)
[2021-01-16] MEDS: *HR* LORazepam 1 MG TABLET PO SCH ×2 (07:23→20:32)
[2021-01-16] MEDS: Lactulose Oral Soln 20 GM/30 ML UDC PO SCH ×2 (07:24→20:31)
[2021-01-16] MEDS ORDERED: Thiamine (B-1) 100 MG TABLET PO SCH (09:00)
[2021-01-16] MEDS ORDERED: Folic Acid 1 MG TABLET PO SCH (09:00)
[2021-01-16] MEDS: 0.9 % Sodium Chloride 1,000 ML IVC SCH (15:56)
[2021-01-16] MEDS: Albumin 25% 25gram/100mL 25 GM/100 ML IV.SOLN IVPB SCH ×2 (15:57→20:31)
[2021-01-16] MEDS: Thiamine (B-1) 100 MG, Folic Acid 1 MG, MVI, adult with vitamin K 10 ML in 0.9 % Sodi... IVPB SCH (22:35)
[2021-01-17 03:32] LABS: Basophils # 0.1 K/mcL (0.0-0.2); Basophils % 0.8 %; Eosinophils # 0.3 K/mcL (0.0-0.6); Eosinophils % 2.2 %; Hematocrit 19.8 % (35.3-44.9); Hemoglobin 7.2 g/dL (11.5-15.4); Lymphocytes # 1.6 K/mcL (0.6-4.6); Mean Corpuscular HGB Conc 36.4 g/dL (31.6-35.5); Mean Corpuscular Hemoglobin 34.1 pg (28.0-33.3); Mean Corpuscular Volume 93.8 fL (83.0-100.0); Mean Platelet Volume 10.2 fL (9.4-12.4); Monocytes # 0.7 K/mcL (0.0-1.3); Monocytes % 5.9 %; Neutrophils # 8.6 K/mcL (1.6-8.9); Platelet Count 151 K/mcL (140-400); Red Blood Count 2.11 M/mcL (3.82-4.97); Red Cell Distribution Width 17.2 % (11.5-14.5); Segmented Neutrophils % 76.1 %; White Blood Count 11.3 K/mcL (4.3-11.1)
[2021-01-17 03:40] LABS: INR 1.4; Prothrombin Time 16.1 Seconds (9.4-12.1)
[2021-01-17 03:56] LABS: Albumin 3.5 g/dL (3.5-5.7); Albumin/Globulin Ratio 1.3 (1.1-2.2); Bilirubin,Direct 7.3 mg/dL (0.0-0.2); Bilirubin,Indirect 4.9 mg/dL (0.0-1.0); Bilirubin,Total 12.2 mg/dL (0.3-1.0); Calcium 8.4 mg/dL (8.6-10.3); Globulin 2.6 g/dL (2.4-3.5); Magnesium 2.3 mg/dL (1.6-2.6); Phosphorous 2.7 mg/dL (2.7-4.5); Potassium 3.5 mEq/L (3.5-5.1); Total Protein 6.1 g/dL (6.4-8.9)
[2021-01-17] MEDS: *HR* Heparin 5,000 UNIT/ML VIAL SQ SCH ×2 (05:20→17:19)
[2021-01-17] MEDS: Metoprolol XL (24 HR) Succ 25 MG TAB.ER.24H PO SCH (08:03)
[2021-01-17] MEDS: *HR* LORazepam 1 MG TABLET PO SCH ×2 (08:03→20:40)
[2021-01-17] MEDS: Lactulose Oral Soln 20 GM/30 ML UDC PO SCH ×2 (08:03→20:40)
[2021-01-17] MEDS: 0.9 % Sodium Chloride 1,000 ML IVC SCH (08:56)
[2021-01-17 09:10] LABS: Hematocrit 20.7 % (35.3-44.9); Hemoglobin 7.5 g/dL (11.5-15.4)
[2021-01-17] MEDS: Albumin 25% 25gram/100mL 25 GM/100 ML IV.SOLN IVPB SCH ×2 (14:54→17:16)
[2021-01-17 15:00] LABS: Hematocrit 21.3 % (35.3-44.9); Hemoglobin 7.5 g/dL (11.5-15.4)
[2021-01-17] MEDS: Thiamine (B-1) 100 MG, Folic Acid 1 MG, MVI, adult with vitamin K 10 ML in 0.9 % Sodi... IVPB SCH (18:57)
[2021-01-17 21:09] LABS: Hematocrit 19.8 % (35.3-44.9)
[2021-01-18 03:00] LABS: Basophils # 0.2 K/mcL (0.0-0.2); Basophils % 1.2 %; Eosinophils # 0.3 K/mcL (0.0-0.6); Eosinophils % 2.1 %; Hematocrit 21.2 % (35.3-44.9); Hemoglobin 7.4 g/dL (11.5-15.4); Immature Granulocytes % 0.9 % (0-4); Lymphocytes # 2.1 K/mcL (0.6-4.6); Lymphocytes % 14.2 %; Mean Corpuscular HGB Conc 34.9 g/dL (31.6-35.5); Mean Corpuscular Hemoglobin 33.5 pg (28.0-33.3); Mean Corpuscular Volume 95.9 fL (83.0-100.0); Mean Platelet Volume 10.2 fL (9.4-12.4); Monocytes % 6.7 %; Platelet Count 175 K/mcL (140-400); Red Blood Count 2.21 M/mcL (3.82-4.97); Red Cell Distribution Width 18.5 % (11.5-14.5); Segmented Neutrophils % 74.9 %; White Blood Count 14.6 K/mcL (4.3-11.1)
[2021-01-18 03:21] LABS: Calcium 8.8 mg/dL (8.6-10.3); Magnesium 2.1 mg/dL (1.6-2.6); Phosphorous 2.1 mg/dL (2.7-4.5); Potassium 3.4 mEq/L (3.5-5.1)
[2021-01-18 03:22] LABS: Albumin 3.8 g/dL (3.5-5.7); Albumin/Globulin Ratio 1.4 (1.1-2.2); Bilirubin,Direct 7.9 mg/dL (0.0-0.2); Bilirubin,Indirect 5.9 mg/dL (0.0-1.0); Bilirubin,Total 13.8 mg/dL (0.3-1.0); Globulin 2.8 g/dL (2.4-3.5); Total Protein 6.6 g/dL (6.4-8.9)
[2021-01-18] MEDS: *HR* Heparin 5,000 UNIT/ML VIAL SQ SCH ×2 (04:41→17:14)
[2021-01-18] MEDS: Metoprolol XL (24 HR) Succ 25 MG TAB.ER.24H PO SCH (07:48)
[2021-01-18] MEDS: Lactulose Oral Soln 20 GM/30 ML UDC PO SCH ×2 (07:48→19:45)
[2021-01-18] MEDS: *HR* LORazepam 1 MG TABLET PO SCH ×2 (07:48→19:45)
[2021-01-18] MEDS ORDERED: 0.9 % Sodium Chloride 1,000 ML IVC SCH (09:15)
[2021-01-18 09:34] LABS: INR 1.4
[2021-01-18] MEDS ORDERED: levoFLOXacin 750 MG/150 ML 750 MG/150 ML BAG IVPB SCH (12:52)
[2021-01-18] MEDS: MethylPREDNISolone 40 MG/ML VIAL IVP SCH (15:13)
[2021-01-18] MEDS: *HR* OxyCODONE Immed Rel 5 MG TABLET PO PRN (15:14)
[2021-01-19] MEDS: MethylPREDNISolone 40 MG/ML VIAL IVP SCH ×3 (00:15→16:11)
[2021-01-19 02:39] LABS: Albumin 3.5 g/dL (3.5-5.7); Albumin/Globulin Ratio 1.3 (1.1-2.2); Basophils % 0.4 %; Bilirubin,Total 14.2 mg/dL (0.3-1.0); Globulin 2.7 g/dL (2.4-3.5); Hematocrit 20.2 % (35.3-44.9); Hemoglobin 7.1 g/dL (11.5-15.4); Immature Granulocytes % 1.1 % (0-4); Lymphocytes # 0.8 K/mcL (0.6-4.6); Lymphocytes % 7.6 %; Mean Corpuscular HGB Conc 35.1 g/dL (31.6-35.5); Mean Corpuscular Hemoglobin 33.8 pg (28.0-33.3); Mean Corpuscular Volume 96.2 fL (83.0-100.0); Mean Platelet Volume 10.4 fL (9.4-12.4); Monocytes # 0.2 K/mcL (0.0-1.3); Neutrophils # 9.6 K/mcL (1.6-8.9); Phosphorous 1.7 mg/dL (2.7-4.5); Platelet Count 183 K/mcL (140-400); Potassium 4.2 mEq/L (3.5-5.1); Red Cell Distribution Width 19.7 % (11.5-14.5); Segmented Neutrophils % 88.9 %; Total Protein 6.2 g/dL (6.4-8.9); White Blood Count 10.8 K/mcL (4.3-11.1)
[2021-01-19] MEDS: *HR* Heparin 5,000 UNIT/ML VIAL SQ SCH ×2 (06:59→18:45)
[2021-01-19] MEDS: Metoprolol XL (24 HR) Succ 25 MG TAB.ER.24H PO SCH (08:25)
[2021-01-19] MEDS: *HR* LORazepam 1 MG TABLET PO SCH ×2 (08:26→20:24)
[2021-01-19] MEDS: Lactulose Oral Soln 20 GM/30 ML UDC PO SCH ×2 (08:26→20:24)
[2021-01-19] MEDS: Vitamin B Complex/Vit C/Vit E 1 EACH TABLET PO SCH (08:26)
[2021-01-19] MEDS: Folic Acid 1 MG TABLET PO SCH (08:26)
[2021-01-19 09:39] LABS: INR 1.5; Prothrombin Time 16.6 Seconds (9.4-12.1)
[2021-01-19 12:40] LABS: Hematocrit 21.3 % (35.3-44.9); Hemoglobin 7.2 g/dL (11.5-15.4)
[2021-01-19] MEDS: Nitrofurantoin (BID) 100 MG CAPSULE PO SCH (16:11)
[2021-01-19 20:17] LABS: Hematocrit 21.1 % (35.3-44.9); Hemoglobin 7.1 g/dL (11.5-15.4)
[2021-01-19] MEDS: Melatonin 3 MG TABLET PO PRN (20:24)
[2021-01-19] MEDS: Nicotine 21 MG PATCH.TD24 TD SCH (21:05)
[2021-01-20] MEDS: MethylPREDNISolone 40 MG/ML VIAL IVP SCH ×4 (01:11→23:41)
[2021-01-20 05:52] LABS: Albumin 3.5 g/dL (3.5-5.7); Albumin/Globulin Ratio 1.2 (1.1-2.2); Bilirubin,Total 13.6 mg/dL (0.3-1.0); Calcium 9.1 mg/dL (8.6-10.3); Globulin 2.9 g/dL (2.4-3.5); Magnesium 1.9 mg/dL (1.6-2.6); Potassium 3.9 mEq/L (3.5-5.1); Total Protein 6.4 g/dL (6.4-8.9)
[2021-01-20] MEDS: *HR* Heparin 5,000 UNIT/ML VIAL SQ SCH ×2 (06:12→16:58)
[2021-01-20] MEDS: Metoprolol XL (24 HR) Succ 25 MG TAB.ER.24H PO SCH (09:42)
[2021-01-20] MEDS: Vitamin B Complex/Vit C/Vit E 1 EACH TABLET PO SCH (09:42)
[2021-01-20] MEDS: *HR* LORazepam 1 MG TABLET PO SCH ×2 (09:42→19:37)
[2021-01-20] MEDS: Nitrofurantoin (BID) 100 MG CAPSULE PO SCH ×2 (09:42→16:57)
[2021-01-20] MEDS: Folic Acid 1 MG TABLET PO SCH (09:42)
[2021-01-20] MEDS: Lactulose Oral Soln 20 GM/30 ML UDC PO SCH ×2 (09:43→19:37)
[2021-01-20] MEDS: *HR* OxyCODONE Immed Rel 5 MG TABLET PO PRN (09:47)
[2021-01-20 17:14] LABS: Hematocrit 20.5 % (35.3-44.9); Hemoglobin 7.2 g/dL (11.5-15.4)
[2021-01-20] MEDS: Nicotine 21 MG PATCH.TD24 TD SCH (19:37)
[2021-01-20] MEDS: Melatonin 3 MG TABLET PO PRN (19:37)
[2021-01-20] MEDS: Ondansetron 4 MG/2 ML VIAL IVP PRN (19:44)
[2021-01-21 05:13] LABS: Hematocrit 20.7 % (35.3-44.9)
[2021-01-21 05:37] LABS: Albumin 3.5 g/dL (3.5-5.7); Albumin/Globulin Ratio 1.3 (1.1-2.2); Bilirubin,Total 12.2 mg/dL (0.3-1.0); Calcium 9.5 mg/dL (8.6-10.3); Globulin 2.8 g/dL (2.4-3.5); Phosphorous 2.5 mg/dL (2.7-4.5); Total Protein 6.3 g/dL (6.4-8.9)
[2021-01-21] MEDS: *HR* Heparin 5,000 UNIT/ML VIAL SQ SCH (06:00)
[2021-01-21] MEDS: Folic Acid 1 MG TABLET PO SCH (07:53)
[2021-01-21] MEDS: Nitrofurantoin (BID) 100 MG CAPSULE PO SCH ×2 (07:53→16:25)
[2021-01-21] MEDS: Lactulose Oral Soln 20 GM/30 ML UDC PO SCH ×2 (07:54→22:29)
[2021-01-21] MEDS: Vitamin B Complex/Vit C/Vit E 1 EACH TABLET PO SCH (07:54)
[2021-01-21] MEDS: *HR* LORazepam 1 MG TABLET PO SCH ×2 (07:54→22:29)
[2021-01-21] MEDS: Metoprolol XL (24 HR) Succ 25 MG TAB.ER.24H PO SCH (07:54)
[2021-01-21] MEDS: MethylPREDNISolone 40 MG/ML VIAL IVP SCH ×3 (07:54→22:29)
[2021-01-21] MEDS: *HR* OxyCODONE Immed Rel 5 MG TABLET PO PRN ×2 (16:37→22:37)
[2021-01-21] MEDS ORDERED: Acetaminophen/Butalbital/CaffeineTABLET PO ONE (16:58)
[2021-01-21 17:45] LABS: Hematocrit 21.6 % (35.3-44.9); Hemoglobin 7.2 g/dL (11.5-15.4)
[2021-01-21] MEDS: Melatonin 3 MG TABLET PO PRN (22:29)
[2021-01-21] MEDS: Nicotine 21 MG PATCH.TD24 TD SCH (22:29)
[2021-01-22] MEDS: *HR* OxyCODONE Immed Rel 5 MG TABLET PO PRN (05:46)
[2021-01-22 05:49] VITALS: TEMP 97.9
[2021-01-22 06:13] LABS: Albumin 3.5 g/dL (3.5-5.7); Albumin/Globulin Ratio 1.3 (1.1-2.2); Bilirubin,Total 10.8 mg/dL (0.3-1.0); Calcium 9.6 mg/dL (8.6-10.3); Globulin 2.7 g/dL (2.4-3.5); Phosphorous 2.5 mg/dL (2.7-4.5); Potassium 4.1 mEq/L (3.5-5.1); Total Protein 6.2 g/dL (6.4-8.9)
[2021-01-22] MEDS: MethylPREDNISolone 40 MG/ML VIAL IVP SCH (08:17)
[2021-01-22] MEDS: Nitrofurantoin (BID) 100 MG CAPSULE PO SCH (08:18)
[2021-01-22] MEDS: Metoprolol XL (24 HR) Succ 25 MG TAB.ER.24H PO SCH (09:39)
[2021-01-22] MEDS: Folic Acid 1 MG TABLET PO SCH (09:39)
[2021-01-22] MEDS: Lactulose Oral Soln 20 GM/30 ML UDC PO SCH (09:39)
[2021-01-22] MEDS: *HR* LORazepam 1 MG TABLET PO SCH (09:39)
[2021-01-22] MEDS: Vitamin B Complex/Vit C/Vit E 1 EACH TABLET PO SCH (09:39)
[2021-01-22 11:48] VITALS: BP 127/86; PULSE 78; O2SAT 100
[2021-01-22] MEDS ORDERED: Moderna Covid-19 Vaccine 100MCG/0.5mL IM ONE (13:45)
== END 2021-01-22 15:05 | disposition home or self-care (01) | DRG 433 ==
LOC: 3NENU 10:25 → EMEROOARM 10:25 → SUATTDRO 14:40 → 3NENU 15:32 → SUATTDRO 17:44
PROVIDERS: ADMIT Family Medicine; ATTEND Internal Medicine

== ENCOUNTER 2021-01-31 23:32 | Inpatient (IN) ==
[2021-02-01] MEDS ORDERED: Metoclopramide 10 MG/2 ML VIAL IVP ONE (00:15)
[2021-02-01 00:29] LABS: Basophils # 0.1 K/mcL (0.0-0.2); Basophils % 0.4 %; Eosinophils # 0.3 K/mcL (0.0-0.6); Eosinophils % 2.7 %; Hematocrit 26.7 % (35.3-44.9); Hemoglobin 8.8 g/dL (11.5-15.4); Immature Granulocytes % 0.5 % (0-4); Lymphocytes % 15.6 %; Mean Corpuscular Hemoglobin 33.3 pg (28.0-33.3); Mean Corpuscular Volume 101.1 fL (83.0-100.0); Mean Platelet Volume 11.2 fL (9.4-12.4); Monocytes # 0.9 K/mcL (0.0-1.3); Monocytes % 6.9 %; Neutrophils # 9.5 K/mcL (1.6-8.9); Platelet Count 192 K/mcL (140-400); Red Blood Count 2.64 M/mcL (3.82-4.97); Red Cell Distribution Width 22.5 % (11.5-14.5); Segmented Neutrophils % 73.9 %; White Blood Count 12.8 K/mcL (4.3-11.1)
[2021-02-01 00:37] LABS: INR 1.3; Prothrombin Time 14.2 Seconds (9.4-12.1)
[2021-02-01 00:38] LABS: Alanine Aminotransferase 79 Units/L (7-52); Albumin 3.5 g/dL (3.5-5.7); Albumin/Globulin Ratio 1.2 (1.1-2.2); Alkaline Phosphatase 313 Units/L (34-104); Aspartate Amino Transferase 68 Units/L (13-39); BUN/Creatinine Ratio 5 (6-26); Bilirubin,Direct 3.3 mg/dL (0.0-0.2); Bilirubin,Total 6.2 mg/dL (0.3-1.0); Blood Urea Nitrogen 4 mg/dL (6-20); Calcium 8.9 mg/dL (8.6-10.3); Carbon Dioxide 22 mEq/L (23-29); Chloride 105 mEq/L (98-107); Glucose 119 mg/dL (70-105); Osmolality,Calculated 286 (280-300); Potassium 2.6 mEq/L (3.5-5.1); Sodium 139 mEq/L (136-145); Total Protein 6.5 g/dL (6.4-8.9); eGFR For African Americans > 60 (> 60); eGFR For Non-African Americans > 60 (> 60)
[2021-02-01 00:40] LABS: Activated Partial Thrombo Time 37.1 Seconds (26.0-36.0)
[2021-02-01 00:48] LABS: Bilirubin,Urine Negative (Negative); Blood,Urine Negative (Negative); Clarity,Urine Clear (Clear); Color,Urine Light-Yellow (Yellow); Glucose,Urine (UA) Normal (Normal); Ketones,Urine Negative (Negative); Leukocyte Esterase,Urine Negative (Negative); Nitrite,Urine Negative (Negative); PH,Urine 6.5 pH Units (5.0-8.0); Protein,Urine Negative (Neg-Trace); Specific Gravity,Urine < 1.005 (1.010-1.025); Urobilinogen,Urine Normal (Normal)
[2021-02-01 01:56] LABS: Amphetamine Screen,Urine Negative ng/mL (Cutoff=1000); Barbiturate Screen,Urine Negative ng/mL (Cutoff=200); Benzodiazepines Screen,Urine Negative ng/mL (Cutoff=200); Cannabinoid Screen,Urine Negative ng/mL (Cutoff = 50); Cocaine Screen,Urine Negative ng/mL (Cutoff= 300); Opiate Screen,Urine Negative ng/mL (Cutoff=300); Phencyclidine Screen,Urine Negative ng/mL (Cutoff=25)
[2021-02-01] MEDS ORDERED: Potassium Chloride Elixir 20 MEQ/15 ML UDC PO ONE ×2 (03:52→05:23)
[2021-02-01] MEDS ORDERED: Naloxone 0.4 MG/ML INJ IVP PRN (04:17)
[2021-02-01] MEDS ORDERED: Perflutren Lipid Microsphere 1.3 ML in 0.9 % Sodium Chloride 8.7 ML IVP PRN (05:15)
[2021-02-01] MEDS ORDERED: Acetaminophen 325 MG TABLET PO PRN (05:34)
[2021-02-01 06:00] LABS: Basophils % 0.3 %; Eosinophils # 0.3 K/mcL (0.0-0.6); Eosinophils % 2.4 %; Hematocrit 24.2 % (35.3-44.9); Immature Granulocytes % 0.4 % (0-4); Lymphocytes # 1.6 K/mcL (0.6-4.6); Lymphocytes % 12.6 %; Mean Corpuscular HGB Conc 33.1 g/dL (31.6-35.5); Mean Corpuscular Hemoglobin 33.6 pg (28.0-33.3); Mean Corpuscular Volume 101.7 fL (83.0-100.0); Mean Platelet Volume 10.9 fL (9.4-12.4); Monocytes # 0.7 K/mcL (0.0-1.3); Monocytes % 5.9 %; Neutrophils # 9.9 K/mcL (1.6-8.9); Platelet Count 175 K/mcL (140-400); Red Blood Count 2.38 M/mcL (3.82-4.97); Red Cell Distribution Width 22.6 % (11.5-14.5); Segmented Neutrophils % 78.4 %; White Blood Count 12.6 K/mcL (4.3-11.1)
[2021-02-01 06:28] LABS: Alanine Aminotransferase 70 Units/L (7-52); Albumin 3.2 g/dL (3.5-5.7); Albumin/Globulin Ratio 1.3 (1.1-2.2); Alkaline Phosphatase 286 Units/L (34-104); Aspartate Amino Transferase 64 Units/L (13-39); BUN/Creatinine Ratio 5 (6-26); Bilirubin,Total 5.8 mg/dL (0.3-1.0); Blood Urea Nitrogen 4 mg/dL (6-20); Calcium 8.7 mg/dL (8.6-10.3); Carbon Dioxide 24 mEq/L (23-29); Chloride 108 mEq/L (98-107); Globulin 2.5 g/dL (2.4-3.5); Glucose 112 mg/dL (70-105); Magnesium 1.5 mg/dL (1.6-2.6); Osmolality,Calculated 290 (280-300); Phosphorous 2.8 mg/dL (2.7-4.5); Potassium 3.5 mEq/L (3.5-5.1); Sodium 141 mEq/L (136-145); Total Protein 5.7 g/dL (6.4-8.9); eGFR For African Americans > 60 (> 60); eGFR For Non-African Americans > 60 (> 60)
[2021-02-01 06:55] LABS: Folate > 22.3 ng/mL (3.0-16.0); Vitamin B12 945 pg/mL (250-1100)
[2021-02-01] MEDS: Lactulose Oral Soln 20 GM/30 ML UDC PO SCH ×2 (08:18→20:31)
[2021-02-01] MEDS: Aspirin Enteric Coated 325 MG Tablet PO SCH (08:18)
[2021-02-01 10:59] LABS: Red Blood Cell,CSF < 2000 RBC/mcL
[2021-02-01 11:00] LABS: Appearance,CSF Clear (Clear)
[2021-02-01 11:31] LABS: Glucose,CSF 72 mg/dL (40-70); Total Protein,CSF 38 mg/dL (15-45)
[2021-02-01] MEDS: Acyclovir 600 MG in D5% in Water 250 ML IVPB SCH (16:40)
[2021-02-01 18:40] LABS: Adenovirus Not Detected (Not Detect); Bordetella Pertussis Not Detected (Not Detect); Chlamydophila pneumoniae Not Detected (Not Detect); Coronavirus 229E Not Detected (Not Detect); Coronavirus HKU1 Not Detected (Not Detect); Coronavirus NL63 Not Detected (Not Detect); Coronavirus OC43 Not Detected (Not Detect); Human Metapneumovirus Not Detected (Not Detect); Human Rhinovirus/Enterovirus Not Detected (Not Detect); Influenza A Subtype 2009 H1 Not Detected (Not Detect); Influenza B Not Detected (Not Detect); Mycoplasma pneumoniae Not Detected (Not Detect); Parainfluenza Virus 1 Not Detected (Not Detect); Parainfluenza Virus 2 Not Detected (Not Detect); Parainfluenza Virus 3 Not Detected (Not Detect); Parainfluenza Virus 4 Not Detected (Not Detect); Respiratory Syncytial Virus Not Detected (Not Detect); SARS-CoV-2 Not Detected (Not Detect)
[2021-02-01] MEDS: Ibuprofen 400 MG TABLET PO PRN (20:35)
[2021-02-01] MEDS: Melatonin 3 MG TABLET PO PRN (20:44)
[2021-02-02] MEDS: Acyclovir 600 MG in D5% in Water 250 ML IVPB SCH ×2 (00:09→08:50)
[2021-02-02 00:42] LABS: Basophils # 0.1 K/mcL (0.0-0.2); Basophils % 0.5 %; Eosinophils # 0.3 K/mcL (0.0-0.6); Eosinophils % 3.5 %; Hematocrit 21.2 % (35.3-44.9); Hemoglobin 6.9 g/dL (11.5-15.4); Immature Granulocytes % 0.3 % (0-4); Lymphocytes % 20.6 %; Mean Corpuscular HGB Conc 32.5 g/dL (31.6-35.5); Mean Corpuscular Volume 101.4 fL (83.0-100.0); Mean Platelet Volume 11.3 fL (9.4-12.4); Monocytes # 0.7 K/mcL (0.0-1.3); Monocytes % 7.5 %; Neutrophils # 6.4 K/mcL (1.6-8.9); Platelet Count 148 K/mcL (140-400); Red Blood Count 2.09 M/mcL (3.82-4.97); Red Cell Distribution Width 21.9 % (11.5-14.5); Segmented Neutrophils % 67.6 %; White Blood Count 9.5 K/mcL (4.3-11.1)
[2021-02-02 01:01] LABS: Alanine Aminotransferase 61 Units/L (7-52); Albumin 2.8 g/dL (3.5-5.7); Albumin/Globulin Ratio 1.2 (1.1-2.2); Alkaline Phosphatase 281 Units/L (34-104); Aspartate Amino Transferase 58 Units/L (13-39); Blood Urea Nitrogen 5 mg/dL (6-20); Calcium 8.1 mg/dL (8.6-10.3); Carbon Dioxide 21 mEq/L (23-29); Chloride 108 mEq/L (98-107); Globulin 2.4 g/dL (2.4-3.5); Glucose 95 mg/dL (70-105); Osmolality,Calculated 283 (280-300); Potassium 3.2 mEq/L (3.5-5.1); Sodium 138 mEq/L (136-145); Total Protein 5.2 g/dL (6.4-8.9)
[2021-02-02 01:02] LABS: BUN/Creatinine Ratio 5 (6-26); eGFR For African Americans > 60 (> 60); eGFR For Non-African Americans > 60 (> 60)
[2021-02-02 01:03] LABS: Chol/HDL Ratio 4.9 (0-4.9); Cholesterol 122 mg/dL (< 200); HDL Cholesterol 25 mg/dL (40-59); LDL Cholesterol,Calculated 78 mg/dL (< 100); Triglycerides 94 mg/dL (< 150); Troponin I < 0.03 ng/mL (< 0.04)
[2021-02-02] MEDS: Lactulose Oral Soln 20 GM/30 ML UDC PO SCH ×2 (08:50→19:29)
[2021-02-02] MEDS: Aspirin Enteric Coated 325 MG Tablet PO SCH (08:50)
[2021-02-02 10:37] LABS: Estimated Average Glucose 62 mg/dl; Hemoglobin A1C 3.8 %
[2021-02-02] MEDS: Ibuprofen 400 MG TABLET PO PRN (11:46)
[2021-02-02] MEDS: Ondansetron 4 MG/2 ML VIAL IVP PRN (11:46)
[2021-02-02] MEDS ORDERED: ALPRAZolam 0.25 MG TABLET PO ONE (14:46)
[2021-02-02] MEDS ORDERED: 0.9 % Sodium Chloride 250 ML ONE (15:20)
[2021-02-02 22:36] LABS: Hematocrit 24.5 % (35.3-44.9); Hemoglobin 8.4 g/dL (11.5-15.4)
[2021-02-03] MEDS ORDERED: ALPRAZolam 0.25 MG TABLET PO ONE (04:04)
[2021-02-03 04:45] LABS: White Blood Count 11.6 K/mcL (4.3-11.1)
[2021-02-03 04:46] LABS: Basophils # 0.1 K/mcL (0.0-0.2); Basophils % 0.7 %; Eosinophils # 0.4 K/mcL (0.0-0.6); Eosinophils % 3.1 %; Hematocrit 26.5 % (35.3-44.9); Hemoglobin 9.2 g/dL (11.5-15.4); Immature Granulocytes % 0.3 % (0-4); Mean Corpuscular HGB Conc 34.7 g/dL (31.6-35.5); Mean Corpuscular Hemoglobin 33.3 pg (28.0-33.3); Mean Platelet Volume 11.5 fL (9.4-12.4); Monocytes # 0.8 K/mcL (0.0-1.3); Monocytes % 7.1 %; Neutrophils # 8.3 K/mcL (1.6-8.9); Platelet Count 171 K/mcL (140-400); Red Blood Count 2.76 M/mcL (3.82-4.97); Red Cell Distribution Width 20.8 % (11.5-14.5); Segmented Neutrophils % 71.8 %
[2021-02-03 05:01] LABS: BUN/Creatinine Ratio 5 (6-26); Blood Urea Nitrogen 4 mg/dL (6-20); Calcium 8.7 mg/dL (8.6-10.3); Carbon Dioxide 19 mEq/L (23-29); Chloride 106 mEq/L (98-107); Glucose 95 mg/dL (70-105); Osmolality,Calculated 281 (280-300); Potassium 3.1 mEq/L (3.5-5.1); Sodium 137 mEq/L (136-145); eGFR For African Americans > 60 (> 60); eGFR For Non-African Americans > 60 (> 60)
[2021-02-03] MEDS: Lactulose Oral Soln 20 GM/30 ML UDC PO SCH ×2 (09:37→20:29)
[2021-02-03] MEDS: Metoprolol XL (24 HR) Succ 25 MG TAB.ER.24H PO SCH (09:37)
[2021-02-03] MEDS: Aspirin Enteric Coated 325 MG Tablet PO SCH (09:37)
[2021-02-03] MEDS: Furosemide 20 MG TABLET PO SCH (14:26)
[2021-02-03] MEDS: Folic Acid 1 MG TABLET PO SCH (17:24)
[2021-02-03] MEDS: Thiamine (B-1) 100 MG TABLET PO SCH (17:24)
[2021-02-03] MEDS: Multivit/Ca/Min/Fe/FA 1 TAB TABLET PO SCH (17:24)
[2021-02-03] MEDS: Melatonin 3 MG TABLET PO PRN (22:26)
[2021-02-03] MEDS: Ibuprofen 400 MG TABLET PO PRN (22:26)
[2021-02-03] MEDS ORDERED: traZODone 50 MG TABLET PO PRN (22:58)
[2021-02-04 01:53] LABS: Basophils # 0.1 K/mcL (0.0-0.2); Eosinophils # 0.3 K/mcL (0.0-0.6); Eosinophils % 2.6 %; Hematocrit 25.9 % (35.3-44.9); Hemoglobin 8.8 g/dL (11.5-15.4); Immature Granulocytes % 0.3 % (0-4); Lymphocytes # 1.7 K/mcL (0.6-4.6); Lymphocytes % 16.1 %; Mean Corpuscular Hemoglobin 33.5 pg (28.0-33.3); Mean Corpuscular Volume 98.5 fL (83.0-100.0); Mean Platelet Volume 10.9 fL (9.4-12.4); Monocytes # 0.7 K/mcL (0.0-1.3); Monocytes % 7.1 %; Neutrophils # 7.5 K/mcL (1.6-8.9); Platelet Count 177 K/mcL (140-400); Red Blood Count 2.63 M/mcL (3.82-4.97); Red Cell Distribution Width 20.6 % (11.5-14.5); Segmented Neutrophils % 72.9 %; White Blood Count 10.3 K/mcL (4.3-11.1)
[2021-02-04 02:10] LABS: BUN/Creatinine Ratio 6 (6-26); Blood Urea Nitrogen 5 mg/dL (6-20); Calcium 8.8 mg/dL (8.6-10.3); Carbon Dioxide 23 mEq/L (23-29); Chloride 107 mEq/L (98-107); Glucose 101 mg/dL (70-105); Osmolality,Calculated 283 (280-300); Potassium 3.3 mEq/L (3.5-5.1); Sodium 138 mEq/L (136-145); eGFR For African Americans > 60 (> 60); eGFR For Non-African Americans > 60 (> 60)
[2021-02-04] MEDS ORDERED: Haloperidol Lactate 5 MG/ML VIAL IVP ONE (08:43)
[2021-02-04] MEDS ORDERED: *HR* LORazepam 2 MG/ML VIAL IVP ONE (08:46)
[2021-02-04] MEDS: Aspirin Enteric Coated 325 MG Tablet PO SCH (08:49)
[2021-02-04] MEDS: Folic Acid 1 MG TABLET PO SCH (08:49)
[2021-02-04] MEDS: Furosemide 20 MG TABLET PO SCH (08:49)
[2021-02-04] MEDS: Thiamine (B-1) 100 MG TABLET PO SCH (08:49)
[2021-02-04] MEDS: Multivit/Ca/Min/Fe/FA 1 TAB TABLET PO SCH (08:49)
[2021-02-04] MEDS: Metoprolol XL (24 HR) Succ 25 MG TAB.ER.24H PO SCH (08:49)
[2021-02-04] MEDS: Lactulose Oral Soln 20 GM/30 ML UDC PO SCH ×3 (08:49→22:15)
[2021-02-04] MEDS: haloperidoL 1 MG TABLET PO PRN (22:17)
[2021-02-04] MEDS: traZODone 50 MG TABLET PO PRN (22:18)
[2021-02-05 06:38] LABS: Basophils # 0.1 K/mcL (0.0-0.2); Basophils % 1.3 %; Eosinophils # 0.4 K/mcL (0.0-0.6); Hematocrit 25.2 % (35.3-44.9); Hemoglobin 8.5 g/dL (11.5-15.4); Immature Granulocytes % 0.4 % (0-4); Lymphocytes # 2.2 K/mcL (0.6-4.6); Lymphocytes % 22.9 %; Mean Corpuscular HGB Conc 33.7 g/dL (31.6-35.5); Mean Corpuscular Hemoglobin 33.5 pg (28.0-33.3); Mean Corpuscular Volume 99.2 fL (83.0-100.0); Mean Platelet Volume 11.3 fL (9.4-12.4); Monocytes # 0.7 K/mcL (0.0-1.3); Monocytes % 6.8 %; Neutrophils # 6.3 K/mcL (1.6-8.9); Platelet Count 174 K/mcL (140-400); Red Blood Count 2.54 M/mcL (3.82-4.97); Red Cell Distribution Width 20.1 % (11.5-14.5); Segmented Neutrophils % 64.6 %; White Blood Count 9.8 K/mcL (4.3-11.1)
[2021-02-05 07:00] LABS: BUN/Creatinine Ratio 5 (6-26); Blood Urea Nitrogen 4 mg/dL (6-20); Calcium 8.4 mg/dL (8.6-10.3); Carbon Dioxide 23 mEq/L (23-29); Chloride 110 mEq/L (98-107); Glucose 98 mg/dL (70-105); Osmolality,Calculated 289 (280-300); Potassium 3.1 mEq/L (3.5-5.1); Sodium 141 mEq/L (136-145); eGFR For African Americans > 60 (> 60); eGFR For Non-African Americans > 60 (> 60)
[2021-02-05] MEDS: Thiamine (B-1) 100 MG TABLET PO SCH (09:29)
[2021-02-05] MEDS: Furosemide 20 MG TABLET PO SCH (09:29)
[2021-02-05] MEDS: Aspirin Enteric Coated 325 MG Tablet PO SCH (09:29)
[2021-02-05] MEDS: Multivit/Ca/Min/Fe/FA 1 TAB TABLET PO SCH (09:29)
[2021-02-05] MEDS: Ibuprofen 400 MG TABLET PO PRN (09:29)
[2021-02-05] MEDS: Lactulose Oral Soln 20 GM/30 ML UDC PO SCH ×2 (09:29→21:25)
[2021-02-05] MEDS: Folic Acid 1 MG TABLET PO SCH (09:29)
[2021-02-05] MEDS: Metoprolol XL (24 HR) Succ 25 MG TAB.ER.24H PO SCH (09:30)
[2021-02-05 11:06] LABS: INR 1.2; Prothrombin Time 13.5 Seconds (9.4-12.1)
[2021-02-05] MEDS: haloperidoL 1 MG TABLET PO PRN ×2 (15:19→23:06)
[2021-02-05] MEDS: Melatonin 3 MG TABLET PO PRN (21:27)
[2021-02-05] MEDS: traZODone 50 MG TABLET PO PRN (21:27)
[2021-02-06 06:36] LABS: Hematocrit 25.1 % (35.3-44.9); Hemoglobin 8.5 g/dL (11.5-15.4); Mean Corpuscular HGB Conc 33.9 g/dL (31.6-35.5); Mean Corpuscular Hemoglobin 33.2 pg (28.0-33.3); Mean Platelet Volume 10.6 fL (9.4-12.4); Platelet Count 161 K/mcL (140-400); Red Blood Count 2.56 M/mcL (3.82-4.97); Red Cell Distribution Width 19.9 % (11.5-14.5); White Blood Count 7.5 K/mcL (4.3-11.1)
[2021-02-06 06:52] LABS: Alanine Aminotransferase 49 Units/L (7-52); Albumin/Globulin Ratio 1.3 (1.1-2.2); Alkaline Phosphatase 284 Units/L (34-104); Aspartate Amino Transferase 49 Units/L (13-39); BUN/Creatinine Ratio 5 (6-26); Bilirubin,Total 4.6 mg/dL (0.3-1.0); Blood Urea Nitrogen 4 mg/dL (6-20); Calcium 8.6 mg/dL (8.6-10.3); Carbon Dioxide 23 mEq/L (23-29); Chloride 112 mEq/L (98-107); Globulin 2.3 g/dL (2.4-3.5); Glucose 82 mg/dL (70-105); Osmolality,Calculated 290 (280-300); Potassium 3.5 mEq/L (3.5-5.1); Sodium 142 mEq/L (136-145); Total Protein 5.3 g/dL (6.4-8.9); eGFR For African Americans > 60 (> 60); eGFR For Non-African Americans > 60 (> 60)
[2021-02-06 08:08] LABS: Bilirubin,Direct 2.4 mg/dL (0.0-0.2); Bilirubin,Indirect 2.2 mg/dL (0.0-1.0)
[2021-02-06] MEDS: Metoprolol XL (24 HR) Succ 25 MG TAB.ER.24H PO SCH (08:25)
[2021-02-06] MEDS: Thiamine (B-1) 100 MG TABLET PO SCH (08:25)
[2021-02-06] MEDS: Folic Acid 1 MG TABLET PO SCH (08:25)
[2021-02-06] MEDS: Furosemide 20 MG TABLET PO SCH (08:25)
[2021-02-06] MEDS: Multivit/Ca/Min/Fe/FA 1 TAB TABLET PO SCH (08:25)
[2021-02-06] MEDS: Aspirin Enteric Coated 325 MG Tablet PO SCH (08:25)
[2021-02-06] MEDS: Lactulose Oral Soln 20 GM/30 ML UDC PO SCH ×2 (08:26→20:21)
[2021-02-06] MEDS ORDERED: Thiamine (B-1) 200 MG in 0.9 % Sodium Chloride 50 ML IVPB SCH (09:45)
[2021-02-06 09:50] LABS: HSV Source NOT PROVIDED
[2021-02-06] MEDS: Thiamine (B-1) 500 MG in 0.9 % Sodium Chloride 50 ML IVPB SCH (11:21)
[2021-02-06] MEDS: QUEtiapine Fumarate 25 MG TABLET PO SCH ×2 (15:18→22:03)
[2021-02-06] MEDS: Ondansetron 4 MG/2 ML VIAL IVP PRN (15:22)
[2021-02-06] MEDS ORDERED: SODIUM CHLORIDE/NAHCO3/KCL/PEG 4,000 ML SOLN.RECON PO ONE (17:00)
[2021-02-07 05:00] LABS: Hemoglobin 8.2 g/dL (11.5-15.4); Mean Corpuscular HGB Conc 34.2 g/dL (31.6-35.5); Mean Corpuscular Hemoglobin 33.3 pg (28.0-33.3); Mean Corpuscular Volume 97.6 fL (83.0-100.0); Mean Platelet Volume 10.7 fL (9.4-12.4); Platelet Count 143 K/mcL (140-400); Red Blood Count 2.46 M/mcL (3.82-4.97); Red Cell Distribution Width 19.5 % (11.5-14.5); White Blood Count 6.9 K/mcL (4.3-11.1)
[2021-02-07 05:21] LABS: Alanine Aminotransferase 40 Units/L (7-52); Albumin 2.8 g/dL (3.5-5.7); Albumin/Globulin Ratio 1.2 (1.1-2.2); Alkaline Phosphatase 246 Units/L (34-104); Aspartate Amino Transferase 41 Units/L (13-39); BUN/Creatinine Ratio 4 (6-26); Bilirubin,Total 4.3 mg/dL (0.3-1.0); Blood Urea Nitrogen 3 mg/dL (6-20); Calcium 8.2 mg/dL (8.6-10.3); Carbon Dioxide 22 mEq/L (23-29); Chloride 112 mEq/L (98-107); Globulin 2.4 g/dL (2.4-3.5); Glucose 75 mg/dL (70-105); Osmolality,Calculated 291 (280-300); Potassium 3.1 mEq/L (3.5-5.1); Sodium 143 mEq/L (136-145); Total Protein 5.2 g/dL (6.4-8.9); eGFR For African Americans > 60 (> 60); eGFR For Non-African Americans > 60 (> 60)
[2021-02-07] MEDS: Metoprolol XL (24 HR) Succ 25 MG TAB.ER.24H PO SCH (07:57)
[2021-02-07] MEDS: Folic Acid 1 MG TABLET PO SCH (07:57)
[2021-02-07] MEDS: Lactulose Oral Soln 20 GM/30 ML UDC PO SCH ×2 (07:57→20:04)
[2021-02-07] MEDS: Furosemide 20 MG TABLET PO SCH (07:57)
[2021-02-07] MEDS: Multivit/Ca/Min/Fe/FA 1 TAB TABLET PO SCH (07:57)
[2021-02-07] MEDS: QUEtiapine Fumarate 25 MG TABLET PO SCH ×3 (07:57→20:04)
[2021-02-07] MEDS: Aspirin Enteric Coated 325 MG Tablet PO SCH (07:57)
[2021-02-07] MEDS: Thiamine (B-1) 500 MG in 0.9 % Sodium Chloride 50 ML IVPB SCH (08:03)
[2021-02-07] MEDS ORDERED: Lidocaine -MPF 2% 5 ML VIAL ONE (12:17)
[2021-02-07] MEDS: traZODone 50 MG TABLET PO PRN (20:22)
[2021-02-08 01:55] LABS: Hematocrit 23.8 % (35.3-44.9); Hemoglobin 8.2 g/dL (11.5-15.4); Mean Corpuscular HGB Conc 34.5 g/dL (31.6-35.5); Mean Corpuscular Hemoglobin 33.6 pg (28.0-33.3); Mean Corpuscular Volume 97.5 fL (83.0-100.0); Mean Platelet Volume 10.6 fL (9.4-12.4); Platelet Count 145 K/mcL (140-400); Red Blood Count 2.44 M/mcL (3.82-4.97); Red Cell Distribution Width 18.8 % (11.5-14.5); White Blood Count 6.9 K/mcL (4.3-11.1)
[2021-02-08 02:20] LABS: Alanine Aminotransferase 37 Units/L (7-52); Albumin 2.8 g/dL (3.5-5.7); Albumin/Globulin Ratio 1.2 (1.1-2.2); Alkaline Phosphatase 266 Units/L (34-104); Aspartate Amino Transferase 43 Units/L (13-39); BUN/Creatinine Ratio 4 (6-26); Bilirubin,Direct 2.2 mg/dL (0.0-0.2); Bilirubin,Indirect 1.8 mg/dL (0.0-1.0); Blood Urea Nitrogen 3 mg/dL (6-20); Calcium 8.1 mg/dL (8.6-10.3); Carbon Dioxide 21 mEq/L (23-29); Chloride 111 mEq/L (98-107); Globulin 2.3 g/dL (2.4-3.5); Glucose 77 mg/dL (70-105); Osmolality,Calculated 287 (280-300); Potassium 3.4 mEq/L (3.5-5.1); Sodium 141 mEq/L (136-145); Total Protein 5.1 g/dL (6.4-8.9); eGFR For African Americans > 60 (> 60); eGFR For Non-African Americans > 60 (> 60)
[2021-02-08 07:27] VITALS: BP 130/74; PULSE 97; TEMP 98.2; O2SAT 98
[2021-02-08] MEDS: Thiamine (B-1) 500 MG in 0.9 % Sodium Chloride 50 ML IVPB SCH (07:36)
[2021-02-08] MEDS: Lactulose Oral Soln 20 GM/30 ML UDC PO SCH (07:37)
[2021-02-08] MEDS: QUEtiapine Fumarate 25 MG TABLET PO SCH (07:38)
[2021-02-08] MEDS: Aspirin Enteric Coated 325 MG Tablet PO SCH (07:38)
[2021-02-08] MEDS: Metoprolol XL (24 HR) Succ 25 MG TAB.ER.24H PO SCH (07:38)
[2021-02-08] MEDS: Furosemide 20 MG TABLET PO SCH (07:38)
[2021-02-08] MEDS: Folic Acid 1 MG TABLET PO SCH (07:38)
[2021-02-08] MEDS: Multivit/Ca/Min/Fe/FA 1 TAB TABLET PO SCH (07:38)
[2021-02-08] MEDS: Ibuprofen 400 MG TABLET PO PRN (07:43)
== END 2021-02-08 10:25 | disposition home or self-care (01) | DRG 71 ==
LOC: EMEROOARM 23:32 → 3BNU 23:32 → SUATTDRO 02-01 03:39 → 3BNU 02-01 04:15
PROVIDERS: ADMIT Internal Medicine; ATTEND Registered Nurse
PROC: ENDOEBX (2021-02-07 12:25)
PROC: ENDOCBX (2021-02-07 12:25)